=== PATIENT | female | born 1955 | race Two or more races ===

== ENCOUNTER 2022-11-26 18:02 | Inpatient (IN) | payer OTHER, MEDICAID ==
[~2022-11-26] VITALS: Ht 152.4 cm; Wt 84.9 kg
[~2022-11-26 18:02] MED LIST: AZIT250T8 PO; FERR-20 PO; METH4PAK PO; PANT40TA2 PO; SUCR1TAB PO
[2022-11-26 19:22] LABS: Basophils # (auto) 0 10 ^3/uL (0-0.2); Basophils % (auto) 0.1 % (0.0-2.0); Eosinophils # (auto) 0.1 10 ^3/uL (0-0.8); Eosinophils % (auto) 0.4 % (0.0-7.0); Hematocrit 29.3 % (36.0-46.0); Hemoglobin 9.6 g/dL (12.2-16.2); Lymphocytes # (auto) 0.5 10 ^3/uL (0.4-5.4); Lymphocytes % (auto) 2.4 % (10.0-50.0); Mean Corpuscular Hemoglobin 27.8 pg (28.0-32.0); Mean Corpuscular Hgb Conc. 32.6 g/dL (32.0-36.0); Mean Corpuscular Volume 85.1 fL (80.0-100.0); Monocytes # (auto) 1.4 10 ^3/uL (0-1.3); Monocytes % (auto) 6.2 % (0.0-12.0); Neutrophils # (auto) 20.5 10 ^3/uL (1.6-8.6); Neutrophils % (auto) 90.9 % (37.0-80.0); Red Blood Cells 3.44 10^6/uL (4.0-5.20); White Blood Cell 22.5 10^3/uL (4.4-10.8)
[2022-11-26 19:41] LABS: INR 2.16 (0.9-1.15); Partial Thromboplastin Time 51.1 sec (24.6-33.4)
[2022-11-26 19:50] LABS: Albumin 1.8 g/dL (3.4-5.0); BUN/Creatinine Ratio 10.4; Calcium 7.4 mg/dL (8.5-10.1); Potassium 4.1 mmol/L (3.5-5.1)
[2022-11-26 19:52] LABS: Bilirubin, Total 1.3 mg/dL (0.2-1.0); Total Protein 5.8 g/dL (6.4-8.2)
[2022-11-26] MEDS ORDERED: PIPERACILLIN-TAZOB 3.375GM 100 ML IV ONE (20:45)
[2022-11-26] MEDS ORDERED: methylPREDNISolone SOD SUCC 125 MG/2 ML VL IV ONE (20:45)
[2022-11-26 21:41] LABS: Lactic Acid w/Reflex 2.7 mmol/L (0.4-2.0)
[2022-11-26] MEDS ORDERED: PIPERACILLIN-TAZOB 3.375GM 100 ML IV SCH (22:00)
[2022-11-26] MEDS ORDERED: HYDROcodone-ACET 5/325MG TAB PO PRN (22:00)
[2022-11-26] MEDS ORDERED: ALBUMIN 25% 100 ML IV ONE (22:00)
[2022-11-26] MEDS ORDERED: ONDANSETRON HCL 4 MG/2 ML VIAL IV PRN (22:00)
[2022-11-26] MEDS ORDERED: DEXTROSE (50%) 50ML SYRG IV PRN (22:00)
[2022-11-26] MEDS ORDERED: hydrALAZINE HCL 20 MG/ML VL IV PRN (22:00)
[2022-11-26] MEDS ORDERED: SODIUM CHLORIDE 0.9% 1,000 ML IV SCH (22:00)
[2022-11-26] MEDS ORDERED: ACETAMINOPHEN 325 MG TAB PO PRN (22:00)
[2022-11-26] MEDS ORDERED: DOCUSATE SOD 100 MG CAP PO PRN (22:00)
[2022-11-26] MEDS: methylPREDNISolone SOD SUCC 40 MG/ML VL IV SCH (22:00)
[2022-11-26] MEDS: ACCU-CHEK COMFORT CURVE STRIP VI SCH (22:40)
[2022-11-26] MEDS: InsuLIN REG 1unit/0.01ml Soln (100units/ml) SC SCH (22:41)
[2022-11-26] MEDS ORDERED: MORPHINE SULFATE INJ 2 MG/ml SYRG IV PRN (23:15)
[2022-11-26] MEDS ORDERED: NITROGLYCERIN 0.4 MG SL TAB SL PRN (23:15)
[2022-11-27] MEDS: FAMOTIDINE (10MG/ML) 2ML VL IV SCH ×3 (02:37→22:01)
[2022-11-27] MEDS: ASCORBIC ACID 500 MG TAB PO SCH ×3 (02:38→22:01)
[2022-11-27] MEDS ORDERED: SODIUM CHLORIDE 0.9% 1,000 ML IV SCH (04:30)
[2022-11-27 04:33] VITALS: BP 110/43
[2022-11-27] MEDS: SODIUM CHLORIDE 0.9% 1,000 ML IV SCH ×2 (04:58→22:00)
[2022-11-27 06:00] LABS: Basophils # (auto) 0 10 ^3/uL (0-0.2); Basophils % (auto) 0.2 % (0.0-2.0); Eosinophils # (auto) 0 10 ^3/uL (0-0.8); Eosinophils % (auto) 0.2 % (0.0-7.0); Hemoglobin 9.1 g/dL (12.2-16.2); Lymphocytes # (auto) 0.4 10 ^3/uL (0.4-5.4); Mean Corpuscular Hemoglobin 28.2 pg (28.0-32.0); Mean Corpuscular Hgb Conc. 33.6 g/dL (32.0-36.0); Monocytes # (auto) 0.5 10 ^3/uL (0-1.3); Monocytes % (auto) 2.5 % (0.0-12.0); Neutrophils # (auto) 17.8 10 ^3/uL (1.6-8.6); Neutrophils % (auto) 95.1 % (37.0-80.0); Red Blood Cells 3.22 10^6/uL (4.0-5.20); White Blood Cell 18.7 10^3/uL (4.4-10.8)
[2022-11-27 06:08] LABS: Red Cell Distribution Width 23.6 % (11.8-14.3)
[2022-11-27 06:17] LABS: Potassium 4.1 mmol/L (3.5-5.1)
[2022-11-27 06:26] LABS: Albumin 1.6 g/dL (3.4-5.0); BUN/Creatinine Ratio 15.5; Calcium 7.4 mg/dL (8.5-10.1)
[2022-11-27] MEDS: methylPREDNISolone SOD SUCC 40 MG/ML VL IV SCH ×3 (06:26→22:01)
[2022-11-27] MEDS: PIPERACILLIN-TAZOB 3.375GM 100 ML IV SCH ×3 (06:26→22:01)
[2022-11-27 06:28] LABS: Bilirubin, Total 1.4 mg/dL (0.2-1.0)
[2022-11-27] MEDS: ACCU-CHEK COMFORT CURVE STRIP VI SCH ×6 (06:35→23:52)
[2022-11-27] MEDS: InsuLIN REG 1unit/0.01ml Soln (100units/ml) SC SCH ×5 (06:35→23:43)
[2022-11-27] MEDS: ALBUTEROL SULF 2.5 MG/0.5ML(0.5%) NEB SOLN NEB PRN ×2 (08:09→18:18)
[2022-11-27] MEDS: IPRATROPIUM BROM 0.5 MG/2.5ML INH SOL NEB PRN ×2 (08:09→18:18)
[2022-11-27] MEDS ORDERED: ENOXAPARIN SOD 40 MG/0.4 ML SYRINGE SC SCH (10:00)
[2022-11-27] MEDS: AZITHROMYCIN 500MG/ 250ML 250 ML IV SCH (10:39)
[2022-11-27] MEDS: ZINC SULFATE 220mg CAP or TAB PO SCH (10:40)
[2022-11-27] MEDS ORDERED: DEXTROSE (50%) 50ML SYRG IV PRN (17:30)
[2022-11-27 18:17] VITALS: BP 120/57
[2022-11-27 20:00] VITALS: BP_SYST 126; BP_SYST 91; BP_DIAS 25; BP_DIAS 76
[2022-11-27] MEDS ORDERED: FUROSEMIDE 20 MG/2 ML VIAL IV ONE (20:00)
[2022-11-27] MEDS: IPRATROPIUM BROM 0.5 MG/2.5ML INH SOL NEB SCH (21:54)
[2022-11-27] MEDS: ALBUTEROL SULF 2.5 MG/0.5ML(0.5%) NEB SOLN NEB SCH (21:54)
[2022-11-28 05:00] VITALS: BP 106/41
[2022-11-28] MEDS: PIPERACILLIN-TAZOB 3.375GM 100 ML IV SCH ×3 (05:28→22:19)
[2022-11-28] MEDS: ACCU-CHEK COMFORT CURVE STRIP VI SCH ×5 (05:29→23:06)
[2022-11-28] MEDS: methylPREDNISolone SOD SUCC 40 MG/ML VL IV SCH ×2 (05:29→14:57)
[2022-11-28] MEDS: InsuLIN REG 1unit/0.01ml Soln (100units/ml) SC SCH ×4 (05:43→23:07)
[2022-11-28] MEDS: IPRATROPIUM BROM 0.5 MG/2.5ML INH SOL NEB SCH ×5 (06:46→22:57)
[2022-11-28] MEDS: ALBUTEROL SULF 2.5 MG/0.5ML(0.5%) NEB SOLN NEB SCH ×5 (06:47→22:57)
[2022-11-28 08:00] VITALS: BP 117/45
[2022-11-28] MEDS: ZINC SULFATE 220mg CAP or TAB PO SCH (09:28)
[2022-11-28] MEDS: ASCORBIC ACID 500 MG TAB PO SCH ×2 (09:28→22:19)
[2022-11-28] MEDS: FAMOTIDINE (10MG/ML) 2ML VL IV SCH ×2 (09:29→22:18)
[2022-11-28] MEDS: AZITHROMYCIN 500MG/ 250ML 250 ML IV SCH (09:29)
[2022-11-28] MEDS ORDERED: IOHEXOL 350 MG/ML 100ML IJ ONE (12:20)
[2022-11-28 12:52] VITALS: BP 124/49
[2022-11-28] MEDS: SODIUM CHLORIDE 0.9% 1,000 ML IV SCH (14:20)
[2022-11-28 16:53] VITALS: BP 144/54
[2022-11-28 22:00] VITALS: BP 115/94
[2022-11-29] VITALS (7 sets, daily range): BP systolic 109–153; BP diastolic 58–72
[2022-11-29] MEDS ORDERED: ALPRAZolam 0.25 MG TAB PO PRN
[2022-11-29] MEDS: PIPERACILLIN-TAZOB 3.375GM 100 ML IV SCH ×3 (05:20→23:00)
[2022-11-29] MEDS: ACCU-CHEK COMFORT CURVE STRIP VI SCH ×8 (05:21→23:45)
[2022-11-29] MEDS: SODIUM CHLORIDE 0.9% 1,000 ML IV SCH ×2 (05:21→23:53)
[2022-11-29] MEDS: InsuLIN REG 1unit/0.01ml Soln (100units/ml) SC SCH ×4 (06:16→23:48)
[2022-11-29] MEDS: IPRATROPIUM BROM 0.5 MG/2.5ML INH SOL NEB SCH ×5 (06:29→22:06)
[2022-11-29] MEDS: ALBUTEROL SULF 2.5 MG/0.5ML(0.5%) NEB SOLN NEB SCH ×5 (06:29→22:06)
[2022-11-29] MEDS: AZITHROMYCIN 500MG/ 250ML 250 ML IV SCH (10:13)
[2022-11-29] MEDS: FAMOTIDINE (10MG/ML) 2ML VL IV SCH ×2 (10:13→23:00)
[2022-11-29] MEDS: ASCORBIC ACID 500 MG TAB PO SCH ×2 (10:13→23:00)
[2022-11-29] MEDS: ZINC SULFATE 220mg CAP or TAB PO SCH (10:13)
[2022-11-29] MEDS: Ensure HIGH Protein Chocolate 8oz Bottle PO SCH (18:00)
[2022-11-30 04:45] VITALS: BP 136/54
[2022-11-30] MEDS: PIPERACILLIN-TAZOB 3.375GM 100 ML IV SCH ×3 (06:08→21:27)
[2022-11-30] MEDS: ACCU-CHEK COMFORT CURVE STRIP VI SCH ×7 (06:08→22:00)
[2022-11-30] MEDS: InsuLIN REG 1unit/0.01ml Soln (100units/ml) SC SCH ×3 (06:13→18:00)
[2022-11-30] MEDS: ALBUTEROL SULF 2.5 MG/0.5ML(0.5%) NEB SOLN NEB SCH ×5 (06:23→21:59)
[2022-11-30] MEDS: IPRATROPIUM BROM 0.5 MG/2.5ML INH SOL NEB SCH ×5 (06:23→21:59)
[2022-11-30 06:45] LABS: Urine Bacteria FEW /hpf (None Seen); Urine Blood Negative /uL (Negative); Urine Budding Yeast FEW /hpf (None Seen); Urine Specific Gravity 1.025 (1.001-1.035); Urine WBC 22 /hpf (0 - 5)
[2022-11-30] MEDS: Ensure HIGH Protein Chocolate 8oz Bottle PO SCH ×2 (08:00→18:00)
[2022-11-30] MEDS: FAMOTIDINE (10MG/ML) 2ML VL IV SCH ×2 (09:22→22:17)
[2022-11-30] MEDS: ASCORBIC ACID 500 MG TAB PO SCH ×2 (09:22→21:27)
[2022-11-30] MEDS: ZINC SULFATE 220mg CAP or TAB PO SCH (09:22)
[2022-11-30] MEDS: AZITHROMYCIN 500MG/ 250ML 250 ML IV SCH (11:44)
[2022-11-30 12:54] LABS: Albumin 1.8 g/dL (3.4-5.0); BUN/Creatinine Ratio 28.2; Calcium 7.8 mg/dL (8.5-10.1); Potassium 3.9 mmol/L (3.5-5.1)
[2022-11-30 12:57] LABS: Bilirubin, Total 1.3 mg/dL (0.2-1.0); Total Protein 5.6 g/dL (6.4-8.2)
[2022-11-30 13:00] VITALS: BP 135/64
[2022-11-30 13:02] LABS: Basophils # (auto) 0 10 ^3/uL (0-0.2); Eosinophils # (auto) 0 10 ^3/uL (0-0.8); Eosinophils % (auto) 0.1 % (0.0-7.0); Lymphocytes # (auto) 0.3 10 ^3/uL (0.4-5.4); Lymphocytes % (auto) 2.1 % (10.0-50.0); Monocytes # (auto) 0.6 10 ^3/uL (0-1.3); Monocytes % (auto) 3.8 % (0.0-12.0)
[2022-11-30 13:04] LABS: Basophils % (auto) 0.1 % (0.0-2.0); Hematocrit 25.3 % (36.0-46.0); Hemoglobin 8.4 g/dL (12.2-16.2); Mean Corpuscular Hemoglobin 28.5 pg (28.0-32.0); Mean Corpuscular Hgb Conc. 33.1 g/dL (32.0-36.0); Mean Corpuscular Volume 86.3 fL (80.0-100.0); Neutrophils # (auto) 14.4 10 ^3/uL (1.6-8.6); Neutrophils % (auto) 93.9 % (37.0-80.0); Red Blood Cells 2.93 10^6/uL (4.0-5.20); White Blood Cell 15.4 10^3/uL (4.4-10.8)
[2022-11-30 13:11] LABS: Red Cell Distribution Width 23.9 % (11.8-14.3)
[2022-11-30] MEDS: ALPRAZolam 0.5 MG TAB PO SCH ×2 (13:32→21:26)
[2022-11-30 17:00] VITALS: BP 128/66
[2022-11-30] MEDS: ACETYLCYSTEINE 20%(200MG/ML) SOL 4ML NEB SCH (21:59)
[2022-11-30 22:00] VITALS: BP 129/63
[2022-12-01 05:00] VITALS: BP 106/52
[2022-12-01] MEDS: InsuLIN REG 1unit/0.01ml Soln (100units/ml) SC SCH ×5 (06:00→23:28)
[2022-12-01] MEDS: ALPRAZolam 0.5 MG TAB PO SCH ×2 (06:00→14:35)
[2022-12-01] MEDS: ACCU-CHEK COMFORT CURVE STRIP VI SCH ×9 (06:00→23:27)
[2022-12-01] MEDS: PIPERACILLIN-TAZOB 3.375GM 100 ML IV SCH ×4 (06:00→22:45)
[2022-12-01] MEDS ORDERED: MEPERIDINE HCL (25 MG/ML) 1ML VIAL ONE (07:20)
[2022-12-01] MEDS ORDERED: fentaNYL CITRATE 100 MCG/2 ML VL ONE ×2 (07:20→09:27)
[2022-12-01] MEDS ORDERED: MIDAZOLAM HCL 2MG/2ML 2ml VIAL (1mg/ml) ONE (07:20)
[2022-12-01] MEDS: IPRATROPIUM BROM 0.5 MG/2.5ML INH SOL NEB SCH ×5 (08:05→22:08)
[2022-12-01] MEDS: ALBUTEROL SULF 2.5 MG/0.5ML(0.5%) NEB SOLN NEB SCH ×5 (08:05→22:08)
[2022-12-01] MEDS: ACETYLCYSTEINE 20%(200MG/ML) SOL 4ML NEB SCH ×3 (08:06→22:08)
[2022-12-01 08:10] VITALS: BP 131/62
[2022-12-01] MEDS ORDERED: DexAMETHasone SOD PHOS 10MG/1ML VIAL INJ ONE (08:19)
[2022-12-01] MEDS ORDERED: ONDANSETRON HCL 4 MG/2 ML VIAL ONE (08:19)
[2022-12-01] MEDS ORDERED: PROPOFOL 10 MG/ML 20 ML IV ONE (08:19)
[2022-12-01] MEDS ORDERED: ROCURONIUM 10MG/ML 10ML VIAL IV ONE (08:19)
[2022-12-01 09:00] VITALS: BP 131/62
[2022-12-01] MEDS: methylPREDNISolone SOD SUCC 40 MG/ML VL IV SCH ×4 (09:04→23:27)
[2022-12-01] MEDS: Ensure HIGH Protein Chocolate 8oz Bottle PO SCH ×2 (09:06→18:45)
[2022-12-01] MEDS: AZITHROMYCIN 500MG/ 250ML 250 ML IV SCH (10:26)
[2022-12-01] MEDS: FUROSEMIDE 20 MG/2 ML VIAL IV SCH ×2 (10:27→18:29)
[2022-12-01] MEDS: FAMOTIDINE (10MG/ML) 2ML VL IV SCH ×2 (10:27→22:45)
[2022-12-01 10:32] LABS: Eosinophils # (auto) 0.3 10 ^3/uL (0-0.8); Mean Corpuscular Volume 85.8 fL (80.0-100.0); Monocytes # (auto) 0.3 10 ^3/uL (0-1.3); Monocytes % (auto) 2.7 % (0.0-12.0); Nucleated Red Blood Cells % 0.1 %; White Blood Cell 11.5 10^3/uL (4.4-10.8)
[2022-12-01] MEDS: ZINC SULFATE 220mg CAP or TAB PO SCH (10:40)
[2022-12-01] MEDS: POTASSIUM CHL 20 Meq TABLET PO SCH (10:41)
[2022-12-01] MEDS: ASCORBIC ACID 500 MG TAB PO SCH ×2 (10:41→22:00)
[2022-12-01 11:04] LABS: Calcium 7.6 mg/dL (8.5-10.1); Potassium 4.4 mmol/L (3.5-5.1)
[2022-12-01 11:07] LABS: BUN/Creatinine Ratio 26.8
[2022-12-01 11:15] LABS: Basophils # (auto) 0.1 10 ^3/uL (0-0.2); Basophils % (auto) 0.9 % (0.0-2.0); Hematocrit 25.3 % (36.0-46.0); Hemoglobin 8.2 g/dL (12.2-16.2); Lymphocytes # (auto) 0.3 10 ^3/uL (0.4-5.4); Lymphocytes % (auto) 2.9 % (10.0-50.0); Mean Corpuscular Hemoglobin 27.7 pg (28.0-32.0); Mean Corpuscular Hgb Conc. 32.3 g/dL (32.0-36.0); Neutrophils # (auto) 10.4 10 ^3/uL (1.6-8.6); Neutrophils % (auto) 90.5 % (37.0-80.0); Red Blood Cells 2.95 10^6/uL (4.0-5.20); Red Cell Distribution Width 22.9 % (11.8-14.3)
[2022-12-01] MEDS ORDERED: LORazepam 2MG/ML-1ML VIAL IV PRN (16:15)
[2022-12-01] MEDS ORDERED: FLUMAZENIL 0.1 MG/ML INJ 10ML MDV IV ONE ×2 (16:30)
[2022-12-01 20:00] VITALS: BP 120/52
[2022-12-01 23:44] LABS: Urine Bacteria FEW /hpf (None Seen); Urine Blood Negative /uL (Negative); Urine Budding Yeast MODERATE /hpf (None Seen); Urine Hyaline Cast FEW /lpf (0 - 2); Urine Specific Gravity 1.012 (1.001-1.035); Urine WBC 10 /hpf (0 - 5)
[2022-12-02] VITALS (30 sets, daily range): BP systolic 102–154; BP diastolic 42–62
[2022-12-02] MEDS: FUROSEMIDE 20 MG/2 ML VIAL IV SCH (05:38)
[2022-12-02] MEDS: ACCU-CHEK COMFORT CURVE STRIP VI SCH ×7 (05:39→21:49)
[2022-12-02] MEDS: methylPREDNISolone SOD SUCC 40 MG/ML VL IV SCH ×3 (05:39→18:06)
[2022-12-02] MEDS: PIPERACILLIN-TAZOB 3.375GM 100 ML IV SCH ×3 (05:39→21:37)
[2022-12-02] MEDS: InsuLIN REG 1unit/0.01ml Soln (100units/ml) SC SCH ×3 (06:04→18:22)
[2022-12-02] MEDS: IPRATROPIUM BROM 0.5 MG/2.5ML INH SOL NEB SCH ×5 (06:24→22:26)
[2022-12-02] MEDS: ACETYLCYSTEINE 20%(200MG/ML) SOL 4ML NEB SCH ×3 (06:25→22:27)
[2022-12-02] MEDS: ALBUTEROL SULF 2.5 MG/0.5ML(0.5%) NEB SOLN NEB SCH ×5 (06:25→22:26)
[2022-12-02] MEDS: Ensure HIGH Protein Chocolate 8oz Bottle PO SCH ×2 (08:25→18:00)
[2022-12-02] MEDS: AZITHROMYCIN 500MG/ 250ML 250 ML IV SCH (09:46)
[2022-12-02] MEDS: FAMOTIDINE (10MG/ML) 2ML VL IV SCH ×2 (09:47→21:37)
[2022-12-02] MEDS: POTASSIUM CHL 20 Meq TABLET PO SCH (09:47)
[2022-12-02] MEDS: ZINC SULFATE 220mg CAP or TAB PO SCH (09:47)
[2022-12-02] MEDS: ASCORBIC ACID 500 MG TAB PO SCH ×2 (09:47→22:00)
[2022-12-02] MEDS ORDERED: FUROSEMIDE 20 MG/2 ML VIAL IV ONE (10:00)
[2022-12-02 15:33] LABS: INR 1.63 (0.9-1.15); Partial Thromboplastin Time 45.3 sec (24.6-33.4)
[2022-12-02] MEDS: FUROSEMIDE 40 MG/4 ML VIAL IV SCH (18:06)
[2022-12-03] VITALS (61 sets, daily range): BP systolic 103–151; BP diastolic 42–75
[2022-12-03] MEDS: methylPREDNISolone SOD SUCC 40 MG/ML VL IV SCH ×4 (00:04→21:08)
[2022-12-03] MEDS: InsuLIN REG 1unit/0.01ml Soln (100units/ml) SC SCH ×5 (00:05→23:12)
[2022-12-03] MEDS: ACCU-CHEK COMFORT CURVE STRIP VI SCH ×7 (00:11→23:04)
[2022-12-03] MEDS: PIPERACILLIN-TAZOB 3.375GM 100 ML IV SCH ×3 (05:37→21:08)
[2022-12-03] MEDS: FUROSEMIDE 40 MG/4 ML VIAL IV SCH ×2 (05:37→17:34)
[2022-12-03] MEDS: IPRATROPIUM BROM 0.5 MG/2.5ML INH SOL NEB SCH ×5 (06:46→22:25)
[2022-12-03] MEDS: ACETYLCYSTEINE 20%(200MG/ML) SOL 4ML NEB SCH ×3 (06:46→22:25)
[2022-12-03] MEDS: ALBUTEROL SULF 2.5 MG/0.5ML(0.5%) NEB SOLN NEB SCH ×5 (06:46→22:25)
[2022-12-03] MEDS: Ensure HIGH Protein Chocolate 8oz Bottle PO SCH ×2 (08:00→18:00)
[2022-12-03] MEDS: FLUCONAZOLE 200MG/100ML 100 ML IV SCH ×2 (09:50→12:03)
[2022-12-03] MEDS: FAMOTIDINE (10MG/ML) 2ML VL IV SCH ×2 (09:50→21:08)
[2022-12-03] MEDS: AZITHROMYCIN 500MG/ 250ML 250 ML IV SCH (09:51)
[2022-12-03] MEDS: POTASSIUM CHL 20 Meq TABLET PO SCH (10:00)
[2022-12-03] MEDS: ZINC SULFATE 220mg CAP or TAB PO SCH (10:00)
[2022-12-03] MEDS: ASCORBIC ACID 500 MG TAB PO SCH ×2 (10:00→21:17)
[2022-12-03] MEDS ORDERED: CLINIMIX PER PHARMACY 0 ML IV SCH (10:30)
[2022-12-03 12:29] LABS: Albumin 1.5 g/dL (3.4-5.0); Calcium 8.2 mg/dL (8.5-10.1); Magnesium 1.9 mg/dL (1.6-2.6)
[2022-12-03 12:31] LABS: BUN/Creatinine Ratio 42.9
[2022-12-03 12:39] LABS: Bilirubin, Total 0.6 mg/dL (0.2-1.0); Total Protein 5.9 g/dL (6.4-8.2)
[2022-12-03 12:46] LABS: Potassium 2.8 mmol/L (3.5-5.1)
[2022-12-03] MEDS: POTASSIUM CHL 20MEQ/100ML 100 ML IV SCH ×3 (13:30→18:28)
[2022-12-03] MEDS: AMINO ACID INFUSION IN D10W 1,000 ML IV NR (20:14)
[2022-12-04] VITALS (34 sets, daily range): BP systolic 129–165; BP diastolic 44–67
[2022-12-04] MEDS: ACCU-CHEK COMFORT CURVE STRIP VI SCH ×3 (05:01→18:00)
[2022-12-04] MEDS: PIPERACILLIN-TAZOB 3.375GM 100 ML IV SCH ×3 (05:01→21:56)
[2022-12-04] MEDS: InsuLIN REG 1unit/0.01ml Soln (100units/ml) SC SCH ×3 (05:06→18:00)
[2022-12-04] MEDS: FUROSEMIDE 40 MG/4 ML VIAL IV SCH ×2 (06:00→19:15)
[2022-12-04 06:23] LABS: Albumin 1.6 g/dL (3.4-5.0); Calcium 7.9 mg/dL (8.5-10.1); Potassium 3.2 mmol/L (3.5-5.1)
[2022-12-04 06:26] LABS: Magnesium 1.8 mg/dL (1.6-2.6)
[2022-12-04 06:29] LABS: Bilirubin, Total 0.7 mg/dL (0.2-1.0); Phosphorus 3.1 mg/dL (2.5-4.90); Total Protein 5.5 g/dL (6.4-8.2)
[2022-12-04 06:30] LABS: Basophils # (auto) 0 10 ^3/uL (0-0.2); Eosinophils # (auto) 0 10 ^3/uL (0-0.8); Hematocrit 27.2 % (36.0-46.0); Hemoglobin 8.7 g/dL (12.2-16.2); Lymphocytes # (auto) 0.2 10 ^3/uL (0.4-5.4); Lymphocytes % (auto) 2.8 % (10.0-50.0); Mean Corpuscular Hemoglobin 27.8 pg (28.0-32.0); Mean Corpuscular Hgb Conc. 31.9 g/dL (32.0-36.0); Monocytes # (auto) 0.4 10 ^3/uL (0-1.3); Monocytes % (auto) 5.8 % (0.0-12.0); Neutrophils % (auto) 91.4 % (37.0-80.0); Nucleated Red Blood Cells % 0.1 %; Red Blood Cells 3.13 10^6/uL (4.0-5.20); Red Cell Distribution Width 23.2 % (11.8-14.3); White Blood Cell 6.5 10^3/uL (4.4-10.8)
[2022-12-04] MEDS: IPRATROPIUM BROM 0.5 MG/2.5ML INH SOL NEB SCH ×5 (06:38→22:02)
[2022-12-04] MEDS: ALBUTEROL SULF 2.5 MG/0.5ML(0.5%) NEB SOLN NEB SCH ×5 (06:38→22:02)
[2022-12-04] MEDS: ACETYLCYSTEINE 20%(200MG/ML) SOL 4ML NEB SCH ×3 (06:38→22:02)
[2022-12-04] MEDS: Ensure HIGH Protein Chocolate 8oz Bottle PO SCH ×2 (08:19→18:00)
[2022-12-04] MEDS: FLUCONAZOLE 200MG/100ML 100 ML IV SCH ×2 (08:20→12:59)
[2022-12-04] MEDS: ZINC SULFATE 220mg CAP or TAB PO SCH (10:00)
[2022-12-04] MEDS: ASCORBIC ACID 500 MG TAB PO SCH ×2 (10:00→22:00)
[2022-12-04] MEDS: POTASSIUM CHL 20 Meq TABLET PO SCH (10:00)
[2022-12-04] MEDS: FAMOTIDINE (10MG/ML) 2ML VL IV SCH ×2 (10:13→21:56)
[2022-12-04] MEDS: methylPREDNISolone SOD SUCC 40 MG/ML VL IV SCH ×2 (10:13→21:56)
[2022-12-04] MEDS: POTASSIUM CHL 20MEQ/100ML 100 ML IV SCH ×2 (10:14→11:15)
[2022-12-04] MEDS: AZITHROMYCIN 500MG/ 250ML 250 ML IV SCH (10:14)
[2022-12-04] MEDS: AMINO ACID INFUSION IN D10W 1,000 ML IV NR (20:08)
[2022-12-05] VITALS (25 sets, daily range): BP systolic 121–163; BP diastolic 39–75
[2022-12-05] MEDS: ACCU-CHEK COMFORT CURVE STRIP VI SCH ×4 (00:22→18:21)
[2022-12-05] MEDS: InsuLIN REG 1unit/0.01ml Soln (100units/ml) SC SCH ×4 (00:25→18:32)
[2022-12-05 05:32] LABS: Albumin 1.6 g/dL (3.4-5.0); Calcium 7.6 mg/dL (8.5-10.1); Magnesium 1.6 mg/dL (1.6-2.6)
[2022-12-05 05:36] LABS: BUN/Creatinine Ratio 50.6; Bilirubin, Total 0.7 mg/dL (0.2-1.0); Total Protein 5.5 g/dL (6.4-8.2)
[2022-12-05 05:49] LABS: Potassium 2.8 mmol/L (3.5-5.1)
[2022-12-05] MEDS: FUROSEMIDE 40 MG/4 ML VIAL IV SCH (05:55)
[2022-12-05] MEDS: IPRATROPIUM BROM 0.5 MG/2.5ML INH SOL NEB SCH ×4 (06:24→18:02)
[2022-12-05] MEDS: ACETYLCYSTEINE 20%(200MG/ML) SOL 4ML NEB SCH ×2 (06:24→14:15)
[2022-12-05] MEDS: ALBUTEROL SULF 2.5 MG/0.5ML(0.5%) NEB SOLN NEB SCH ×4 (06:24→18:02)
[2022-12-05] MEDS: PIPERACILLIN-TAZOB 3.375GM 100 ML IV SCH ×3 (06:29→20:51)
[2022-12-05] MEDS: POTASSIUM CHL 20MEQ/100ML 100 ML IV SCH ×3 (06:30→12:56)
[2022-12-05] MEDS: Ensure HIGH Protein Chocolate 8oz Bottle PO SCH ×2 (08:00→20:18)
[2022-12-05] MEDS: FAMOTIDINE (10MG/ML) 2ML VL IV SCH ×2 (09:55→20:51)
[2022-12-05] MEDS: AZITHROMYCIN 500MG/ 250ML 250 ML IV SCH (09:56)
[2022-12-05] MEDS: methylPREDNISolone SOD SUCC 40 MG/ML VL IV SCH ×2 (09:56→20:51)
[2022-12-05] MEDS: FLUCONAZOLE 200MG/100ML 100 ML IV SCH ×2 (09:57→12:56)
[2022-12-05] MEDS: ZINC SULFATE 220mg CAP or TAB PO SCH (10:00)
[2022-12-05] MEDS: POTASSIUM CHL 20 Meq TABLET PO SCH (10:00)
[2022-12-05] MEDS: ASCORBIC ACID 500 MG TAB PO SCH ×2 (10:00→21:03)
[2022-12-05] MEDS ORDERED: POTASSIUM PHOSPHATE 44 MEQ in D5W 5% 250 ML IV ONE (14:00)
[2022-12-05] MEDS: MAGNESIUM SULFATE 1GM/100ML 100 ML IV SCH ×2 (14:00→15:00)
[2022-12-05] MEDS ORDERED: acetaZOLAMIDE SODIUM 500 MG VL IV ONE (15:00)
[2022-12-05] MEDS: SPIRONOLACTONE 25 MG TAB PO SCH ×2 (20:17→20:18)
[2022-12-05] MEDS: AMINO ACID INFUSION IN D10W 1,000 ML IV NR (20:43)
[2022-12-05 21:41] LABS: Protein, Urine 41.9 mg/dL (0.0-11.9); Sodium Urine < 5 mmol/L (40-220)
[2022-12-05 21:43] LABS: Creatinine, Urine 43 mg/dL (30.0-125.0)
[2022-12-06] VITALS (29 sets, daily range): BP systolic 119–160; BP diastolic 33–58
[2022-12-06] MEDS: ACCU-CHEK COMFORT CURVE STRIP VI SCH ×4 (00:14→18:00)
[2022-12-06] MEDS: InsuLIN REG 1unit/0.01ml Soln (100units/ml) SC SCH ×4 (00:14→18:00)
[2022-12-06] MEDS: IPRATROPIUM BROM 0.5 MG/2.5ML INH SOL NEB SCH ×5 (01:18→22:11)
[2022-12-06] MEDS: ACETYLCYSTEINE 20%(200MG/ML) SOL 4ML NEB SCH ×4 (01:18→22:12)
[2022-12-06] MEDS: ALBUTEROL SULF 2.5 MG/0.5ML(0.5%) NEB SOLN NEB SCH ×5 (01:18→22:11)
[2022-12-06] MEDS: SPIRONOLACTONE 25 MG TAB PO SCH ×2 (05:48→18:56)
[2022-12-06] MEDS: PIPERACILLIN-TAZOB 3.375GM 100 ML IV SCH ×3 (05:48→23:21)
[2022-12-06 07:20] LABS: Albumin 1.5 g/dL (3.4-5.0); Magnesium 2.3 mg/dL (1.6-2.6); Potassium 3.6 mmol/L (3.5-5.1)
[2022-12-06 07:24] LABS: BUN/Creatinine Ratio 43.9; Bilirubin, Total 0.7 mg/dL (0.2-1.0); Phosphorus 2.3 mg/dL (2.5-4.90); Total Protein 5.7 g/dL (6.4-8.2)
[2022-12-06] MEDS: Ensure HIGH Protein Chocolate 8oz Bottle PO SCH ×2 (08:00→18:00)
[2022-12-06] MEDS: methylPREDNISolone SOD SUCC 40 MG/ML VL IV SCH ×2 (09:55→23:20)
[2022-12-06] MEDS: FUROSEMIDE 40 MG/4 ML VIAL IV SCH (09:56)
[2022-12-06] MEDS: ASCORBIC ACID 500 MG TAB PO SCH ×3 (09:57→22:00)
[2022-12-06] MEDS: POTASSIUM CHL 20 Meq TABLET PO SCH ×2 (09:57→10:00)
[2022-12-06] MEDS: FAMOTIDINE (10MG/ML) 2ML VL IV SCH ×2 (09:57→23:20)
[2022-12-06] MEDS: ZINC SULFATE 220mg CAP or TAB PO SCH ×2 (09:57→10:00)
[2022-12-06] MEDS: AZITHROMYCIN 500MG/ 250ML 250 ML IV SCH (09:58)
[2022-12-06] MEDS: FLUCONAZOLE 200MG/100ML 100 ML IV SCH ×2 (09:58→11:00)
[2022-12-06] MEDS: AMINO ACID INFUSION IN D10W 1,000 ML IV NR ×2 (19:49→20:44)
[2022-12-07] VITALS (34 sets, daily range): BP systolic 116–138; BP diastolic 37–55
[2022-12-07] MEDS: InsuLIN REG 1unit/0.01ml Soln (100units/ml) SC SCH ×4 (01:12→18:11)
[2022-12-07 05:24] LABS: Albumin 1.3 g/dL (3.4-5.0); BUN/Creatinine Ratio 40.6; Calcium 7.7 mg/dL (8.5-10.1); Magnesium 1.9 mg/dL (1.6-2.6); Potassium 3.2 mmol/L (3.5-5.1)
[2022-12-07 05:27] LABS: Bilirubin, Total 0.6 mg/dL (0.2-1.0); Phosphorus 1.8 mg/dL (2.5-4.90)
[2022-12-07] MEDS: IPRATROPIUM BROM 0.5 MG/2.5ML INH SOL NEB SCH ×5 (05:53→22:33)
[2022-12-07] MEDS: ACETYLCYSTEINE 20%(200MG/ML) SOL 4ML NEB SCH ×3 (05:53→22:34)
[2022-12-07] MEDS: ALBUTEROL SULF 2.5 MG/0.5ML(0.5%) NEB SOLN NEB SCH ×5 (05:53→22:34)
[2022-12-07] MEDS: SPIRONOLACTONE 25 MG TAB PO SCH ×2 (06:00→18:00)
[2022-12-07] MEDS: PIPERACILLIN-TAZOB 3.375GM 100 ML IV SCH ×3 (06:03→22:28)
[2022-12-07] MEDS: ACCU-CHEK COMFORT CURVE STRIP VI SCH ×4 (06:03→18:13)
[2022-12-07] MEDS: Ensure HIGH Protein Chocolate 8oz Bottle PO SCH ×2 (08:00→18:00)
[2022-12-07] MEDS ORDERED: MAGNESIUM SULFATE 1GM/100ML 100 ML IV ONE (09:15)
[2022-12-07] MEDS: AZITHROMYCIN 500MG/ 250ML 250 ML IV SCH (09:42)
[2022-12-07] MEDS: FAMOTIDINE (10MG/ML) 2ML VL IV SCH ×2 (09:43→10:03)
[2022-12-07] MEDS ORDERED: POTASSIUM PHOSPHATE 44 MEQ in SODIUM CHL 0.9% 250 ML IV ONE (10:00)
[2022-12-07] MEDS: ASCORBIC ACID 500 MG TAB PO SCH ×3 (10:00→22:00)
[2022-12-07] MEDS: FLUCONAZOLE 200MG/100ML 100 ML IV SCH ×2 (10:00→12:10)
[2022-12-07] MEDS: ZINC SULFATE 220mg CAP or TAB PO SCH ×2 (10:00→10:03)
[2022-12-07] MEDS: POTASSIUM CHL 20 Meq TABLET PO SCH ×2 (10:00→10:04)
[2022-12-07] MEDS: FUROSEMIDE 40 MG/4 ML VIAL IV SCH (10:02)
[2022-12-07] MEDS: methylPREDNISolone SOD SUCC 40 MG/ML VL IV SCH ×2 (10:22→22:28)
[2022-12-07] MEDS: IPRATROPIUM BROM 0.5 MG/2.5ML INH SOL NEB PRN (19:01)
[2022-12-07] MEDS: AMINO ACID INFUSION IN D10W 1,000 ML IV NR (20:41)
[2022-12-08] VITALS (35 sets, daily range): BP systolic 110–152; BP diastolic 39–82
[2022-12-08] MEDS: ACCU-CHEK COMFORT CURVE STRIP VI SCH ×4 (00:24→17:08)
[2022-12-08] MEDS: InsuLIN REG 1unit/0.01ml Soln (100units/ml) SC SCH ×4 (00:25→17:06)
[2022-12-08] MEDS: ALBUTEROL SULF 2.5 MG/0.5ML(0.5%) NEB SOLN NEB PRN (02:27)
[2022-12-08] MEDS: IPRATROPIUM BROM 0.5 MG/2.5ML INH SOL NEB PRN (02:27)
[2022-12-08] MEDS: SPIRONOLACTONE 25 MG TAB PO SCH ×2 (05:41→18:00)
[2022-12-08 05:44] LABS: Basophils # (auto) 0 10 ^3/uL (0-0.2); Eosinophils # (auto) 0 10 ^3/uL (0-0.8); Lymphocytes # (auto) 0.2 10 ^3/uL (0.4-5.4); Monocytes # (auto) 0.4 10 ^3/uL (0-1.3)
[2022-12-08] MEDS: PIPERACILLIN-TAZOB 3.375GM 100 ML IV SCH ×3 (05:47→22:12)
[2022-12-08 05:48] LABS: Basophils % (auto) 0.2 % (0.0-2.0); Hematocrit 26.6 % (36.0-46.0); Hemoglobin 8.7 g/dL (12.2-16.2); Mean Corpuscular Hemoglobin 27.5 pg (28.0-32.0); Mean Corpuscular Hgb Conc. 32.7 g/dL (32.0-36.0); Mean Corpuscular Volume 84.2 fL (80.0-100.0); Monocytes % (auto) 2.3 % (0.0-12.0); Neutrophils # (auto) 15.1 10 ^3/uL (1.6-8.6); Neutrophils % (auto) 96.5 % (37.0-80.0); Nucleated Red Blood Cells % 0.1 %; Red Blood Cells 3.16 10^6/uL (4.0-5.20); White Blood Cell 15.7 10^3/uL (4.4-10.8)
[2022-12-08 06:02] LABS: Potassium 3.3 mmol/L (3.5-5.1)
[2022-12-08] MEDS: IPRATROPIUM BROM 0.5 MG/2.5ML INH SOL NEB SCH ×5 (06:08→22:13)
[2022-12-08] MEDS: ALBUTEROL SULF 2.5 MG/0.5ML(0.5%) NEB SOLN NEB SCH ×5 (06:08→22:13)
[2022-12-08] MEDS: ACETYLCYSTEINE 20%(200MG/ML) SOL 4ML NEB SCH (06:09)
[2022-12-08 06:12] LABS: Albumin 1.3 g/dL (3.4-5.0); Bilirubin, Total 0.6 mg/dL (0.2-1.0); Calcium 7.8 mg/dL (8.5-10.1); Magnesium 2.1 mg/dL (1.6-2.6); Total Protein 4.7 g/dL (6.4-8.2)
[2022-12-08 06:27] LABS: Phosphorus 3.1 mg/dL (2.5-4.90)
[2022-12-08 06:57] LABS: Red Cell Distribution Width 23.1 % (11.8-14.3)
[2022-12-08] MEDS: Ensure HIGH Protein Chocolate 8oz Bottle PO SCH ×2 (08:00→18:00)
[2022-12-08] MEDS: POTASSIUM CHL 20 Meq TABLET PO SCH (10:00)
[2022-12-08] MEDS: ZINC SULFATE 220mg CAP or TAB PO SCH (10:00)
[2022-12-08] MEDS: ASCORBIC ACID 500 MG TAB PO SCH ×2 (10:00→22:00)
[2022-12-08] MEDS: FUROSEMIDE 40 MG/4 ML VIAL IV SCH (10:40)
[2022-12-08] MEDS: methylPREDNISolone SOD SUCC 40 MG/ML VL IV SCH ×2 (10:40→22:12)
[2022-12-08] MEDS: FAMOTIDINE (10MG/ML) 2ML VL IV SCH ×2 (10:41→22:12)
[2022-12-08] MEDS: FLUCONAZOLE 200MG/100ML 100 ML IV SCH ×2 (11:00→12:06)
[2022-12-08] MEDS: AZITHROMYCIN 500MG/ 250ML 250 ML IV SCH (13:09)
[2022-12-08] MEDS ORDERED: POTASSIUM CHL 20MEQ/100ML 100 ML IV ONE (15:30)
[2022-12-08] MEDS: AMINO ACID INFUSION IN D10W 1,000 ML IV NR ×2 (19:38→20:19)
[2022-12-08] MEDS: FUROSEMIDE INJECTION 100 MG in SODIUM CHL 0.9% 100 ML IV SCH (22:50)
[2022-12-09] VITALS (37 sets, daily range): BP systolic 117–147; BP diastolic 26–55
[2022-12-09] MEDS: InsuLIN REG 1unit/0.01ml Soln (100units/ml) SC SCH ×4 (00:16→18:00)
[2022-12-09] MEDS: ACCU-CHEK COMFORT CURVE STRIP VI SCH ×4 (00:18→17:57)
[2022-12-09] MEDS: ALBUTEROL SULF 2.5 MG/0.5ML(0.5%) NEB SOLN NEB SCH ×6 (01:32→22:17)
[2022-12-09] MEDS: IPRATROPIUM BROM 0.5 MG/2.5ML INH SOL NEB SCH ×6 (01:32→22:17)
[2022-12-09] MEDS: SPIRONOLACTONE 25 MG TAB PO SCH ×2 (05:32→17:57)
[2022-12-09] MEDS: PIPERACILLIN-TAZOB 3.375GM 100 ML IV SCH (05:32)
[2022-12-09 05:54] LABS: Albumin 1.3 g/dL (3.4-5.0); BUN/Creatinine Ratio 50.8; Calcium 7.5 mg/dL (8.5-10.1); Magnesium 1.8 mg/dL (1.6-2.6)
[2022-12-09 05:56] LABS: Bilirubin, Total 0.7 mg/dL (0.2-1.0); Phosphorus 1.8 mg/dL (2.5-4.90); Total Protein 4.8 g/dL (6.4-8.2)
[2022-12-09 06:34] LABS: Potassium 2.4 mmol/L (3.5-5.1)
[2022-12-09] MEDS: Ensure HIGH Protein Chocolate 8oz Bottle PO SCH ×2 (07:42→17:57)
[2022-12-09] MEDS: ZINC SULFATE 220mg CAP or TAB PO SCH (07:43)
[2022-12-09] MEDS: POTASSIUM CHL 20 Meq TABLET PO SCH (07:44)
[2022-12-09] MEDS: ASCORBIC ACID 500 MG TAB PO SCH ×2 (07:44→20:47)
[2022-12-09] MEDS: FAMOTIDINE (10MG/ML) 2ML VL IV SCH ×2 (09:56→23:20)
[2022-12-09] MEDS: FLUCONAZOLE 200MG/100ML 100 ML IV SCH ×2 (09:56→12:05)
[2022-12-09] MEDS: AZITHROMYCIN 500MG/ 250ML 250 ML IV SCH (09:57)
[2022-12-09] MEDS: methylPREDNISolone SOD SUCC 40 MG/ML VL IV SCH ×2 (09:57→23:20)
[2022-12-09] MEDS: POTASSIUM CHL 20MEQ/100ML 100 ML IV SCH ×4 (09:58→20:26)
[2022-12-09] MEDS ORDERED: VANCOMYCIN PER PHARMACY 0 MG IV SCH (11:00)
[2022-12-09] MEDS: VANCOMYCIN 1GM/250ML 250 ML IV SCH (12:05)
[2022-12-09] MEDS: CEFEPIME 1GM/ 50ML 50 ML IV SCH ×2 (14:00→23:20)
[2022-12-09] MEDS: FUROSEMIDE INJECTION 100 MG in SODIUM CHL 0.9% 100 ML IV SCH (17:58)
[2022-12-09] MEDS: POTASSIUM PHOSP 22MEQ(15MMOLE) in NS 100 ML IV ONE (20:09)
[2022-12-09] MEDS: AMINO ACID INFUSION IN D10W 1,000 ML IV NR (20:25)
[2022-12-10] VITALS (33 sets, daily range): BP systolic 118–165; BP diastolic 45–60
[2022-12-10] MEDS: POTASSIUM PHOSP 22MEQ(15MMOLE) in NS 100 ML IV ONE (00:55)
[2022-12-10] MEDS: InsuLIN REG 1unit/0.01ml Soln (100units/ml) SC SCH ×4 (01:04→18:24)
[2022-12-10] MEDS: ACCU-CHEK COMFORT CURVE STRIP VI SCH ×4 (01:04→18:22)
[2022-12-10] MEDS: VANCOMYCIN 1GM/250ML 250 ML IV SCH ×2 (02:41→18:23)
[2022-12-10] MEDS: SPIRONOLACTONE 25 MG TAB PO SCH ×2 (05:01→18:00)
[2022-12-10] MEDS: CEFEPIME 1GM/ 50ML 50 ML IV SCH ×3 (05:10→21:49)
[2022-12-10 06:14] LABS: Basophils # (auto) 0 10 ^3/uL (0-0.2); Basophils % (auto) 0.1 % (0.0-2.0); Eosinophils # (auto) 0 10 ^3/uL (0-0.8); Hematocrit 27.4 % (36.0-46.0); Hemoglobin 8.7 g/dL (12.2-16.2); Lymphocytes # (auto) 0.2 10 ^3/uL (0.4-5.4); Lymphocytes % (auto) 1.1 % (10.0-50.0); Mean Corpuscular Hgb Conc. 31.8 g/dL (32.0-36.0); Mean Corpuscular Volume 84.8 fL (80.0-100.0); Monocytes # (auto) 0.8 10 ^3/uL (0-1.3); Monocytes % (auto) 4.6 % (0.0-12.0); Neutrophils # (auto) 16.6 10 ^3/uL (1.6-8.6); Neutrophils % (auto) 94.2 % (37.0-80.0); Red Blood Cells 3.23 10^6/uL (4.0-5.20); White Blood Cell 17.6 10^3/uL (4.4-10.8)
[2022-12-10 06:28] LABS: Red Cell Distribution Width 23.2 % (11.8-14.3)
[2022-12-10 06:32] LABS: INR 1.62 (0.9-1.15); Partial Thromboplastin Time 42.1 sec (24.6-33.4)
[2022-12-10] MEDS: ALBUTEROL SULF 2.5 MG/0.5ML(0.5%) NEB SOLN NEB SCH ×5 (07:01→22:21)
[2022-12-10] MEDS: IPRATROPIUM BROM 0.5 MG/2.5ML INH SOL NEB SCH ×5 (07:01→22:20)
[2022-12-10 07:02] LABS: Albumin 1.2 g/dL (3.4-5.0); BUN/Creatinine Ratio 51.6; Calcium 7.4 mg/dL (8.5-10.1); Magnesium 1.7 mg/dL (1.6-2.6); Phosphorus 2.9 mg/dL (2.5-4.90)
[2022-12-10 07:06] LABS: Potassium 2.4 mmol/L (3.5-5.1)
[2022-12-10] MEDS: Ensure HIGH Protein Chocolate 8oz Bottle PO SCH ×2 (08:00→18:00)
[2022-12-10] MEDS: ZINC SULFATE 220mg CAP or TAB PO SCH (09:04)
[2022-12-10] MEDS: POTASSIUM CHL 20 Meq TABLET PO SCH (09:04)
[2022-12-10] MEDS: ASCORBIC ACID 500 MG TAB PO SCH ×2 (09:05→21:25)
[2022-12-10] MEDS: FAMOTIDINE (10MG/ML) 2ML VL IV SCH ×2 (10:08→21:49)
[2022-12-10] MEDS: methylPREDNISolone SOD SUCC 40 MG/ML VL IV SCH ×2 (10:08→21:49)
[2022-12-10] MEDS: FLUCONAZOLE 200MG/100ML 100 ML IV SCH ×2 (10:09→11:17)
[2022-12-10] MEDS: POTASSIUM CHL 20MEQ/100ML 100 ML IV SCH ×5 (10:10→22:45)
[2022-12-10] MEDS ORDERED: MAGNESIUM SULFATE 1GM/100ML 100 ML IV ONE (11:45)
[2022-12-10] MEDS: FUROSEMIDE INJECTION 100 MG in SODIUM CHL 0.9% 100 ML IV SCH (11:47)
[2022-12-10] MEDS: AMINO ACID INFUSION IN D10W 1,000 ML IV NR (19:34)
[2022-12-11] VITALS (31 sets, daily range): BP systolic 108–172; BP diastolic 20–62
[2022-12-11] MEDS: InsuLIN REG 1unit/0.01ml Soln (100units/ml) SC SCH ×5 (00:40→23:47)
[2022-12-11] MEDS: SPIRONOLACTONE 25 MG TAB PO SCH ×2 (05:38→18:00)
[2022-12-11] MEDS: CEFEPIME 1GM/ 50ML 50 ML IV SCH ×3 (05:47→21:53)
[2022-12-11 05:50] LABS: Eosinophils # (auto) 0 10 ^3/uL (0-0.8)
[2022-12-11] MEDS: ACCU-CHEK COMFORT CURVE STRIP VI SCH ×5 (05:51→23:44)
[2022-12-11 05:54] LABS: Basophils # (auto) 0 10 ^3/uL (0-0.2); Basophils % (auto) 0.3 % (0.0-2.0); Eosinophils % (auto) 0.1 % (0.0-7.0); Hematocrit 25.9 % (36.0-46.0); Hemoglobin 8.3 g/dL (12.2-16.2); Lymphocytes # (auto) 0.2 10 ^3/uL (0.4-5.4); Lymphocytes % (auto) 1.1 % (10.0-50.0); Mean Corpuscular Hemoglobin 27.7 pg (28.0-32.0); Mean Corpuscular Hgb Conc. 32.2 g/dL (32.0-36.0); Mean Corpuscular Volume 85.9 fL (80.0-100.0); Monocytes # (auto) 0.6 10 ^3/uL (0-1.3); Monocytes % (auto) 3.7 % (0.0-12.0); Neutrophils # (auto) 14.2 10 ^3/uL (1.6-8.6); Neutrophils % (auto) 94.8 % (37.0-80.0); Red Blood Cells 3.02 10^6/uL (4.0-5.20)
[2022-12-11 06:11] LABS: Red Cell Distribution Width 23.5 % (11.8-14.3)
[2022-12-11 06:25] LABS: BUN/Creatinine Ratio 58.1; Calcium 7.6 mg/dL (8.5-10.1)
[2022-12-11 06:28] LABS: Potassium 2.8 mmol/L (3.5-5.1)
[2022-12-11] MEDS: Ensure HIGH Protein Chocolate 8oz Bottle PO SCH ×2 (08:00→18:00)
[2022-12-11] MEDS: FUROSEMIDE INJECTION 100 MG in SODIUM CHL 0.9% 100 ML IV SCH (08:26)
[2022-12-11] MEDS: ALBUTEROL SULF 2.5 MG/0.5ML(0.5%) NEB SOLN NEB SCH ×5 (09:04→22:19)
[2022-12-11] MEDS: IPRATROPIUM BROM 0.5 MG/2.5ML INH SOL NEB SCH ×5 (09:04→22:20)
[2022-12-11] MEDS: VANCOMYCIN 1GM/250ML 250 ML IV SCH ×2 (09:08→20:27)
[2022-12-11] MEDS: ZINC SULFATE 220mg CAP or TAB PO SCH (09:38)
[2022-12-11] MEDS: ASCORBIC ACID 500 MG TAB PO SCH ×2 (09:38→21:54)
[2022-12-11] MEDS: POTASSIUM CHL 20 Meq TABLET PO SCH ×2 (09:38→10:15)
[2022-12-11] MEDS: FAMOTIDINE (10MG/ML) 2ML VL IV SCH ×2 (09:44→21:48)
[2022-12-11] MEDS: methylPREDNISolone SOD SUCC 40 MG/ML VL IV SCH (09:44)
[2022-12-11] MEDS: POTASSIUM CHL 20MEQ/100ML 100 ML IV SCH ×3 (09:45→14:08)
[2022-12-11] MEDS: FLUCONAZOLE 200MG/100ML 100 ML IV SCH ×2 (10:49→12:00)
[2022-12-11] MEDS: methylPREDNISolone SOD SUCC 125 MG/2 ML VL IV SCH ×3 (12:00→23:44)
[2022-12-11 12:03] LABS: Phosphorus 2.6 mg/dL (2.5-4.90)
[2022-12-11] MEDS ORDERED: POTASSIUM PHOSPHATE 22 MEQ in SODIUM CHL 0.9% 100 ML IV ONE (18:00)
[2022-12-11] MEDS ORDERED: LIDOCAINE 1% (LOCAL ANESTH.) PF 5ml SDV ID ONE (18:15)
[2022-12-11] MEDS: AMINO ACID INFUSION IN D10W 1,000 ML IV NR ×2 (19:27→20:17)
[2022-12-11] MEDS: SODIUM CHLOR 0.9% PF (SALINE LOCK) 10ML VIAL/SYR IV SCH (21:52)
[2022-12-11] MEDS: acetaZOLAMIDE SODIUM 500 MG VL IV SCH (21:53)
[2022-12-12] VITALS (36 sets, daily range): BP systolic 104–180; BP diastolic 45–70
[2022-12-12] MEDS: SPIRONOLACTONE 25 MG TAB PO SCH ×2 (06:00→18:00)
[2022-12-12 06:07] LABS: Potassium 2.1 mmol/L (3.5-5.1)
[2022-12-12] MEDS: IPRATROPIUM BROM 0.5 MG/2.5ML INH SOL NEB SCH ×5 (06:09→23:21)
[2022-12-12] MEDS: ALBUTEROL SULF 2.5 MG/0.5ML(0.5%) NEB SOLN NEB SCH ×5 (06:09→23:20)
[2022-12-12 06:11] LABS: Albumin 1.4 g/dL (3.4-5.0); BUN/Creatinine Ratio 52.9; Calcium 7.5 mg/dL (8.5-10.1); Magnesium 1.7 mg/dL (1.6-2.6); Phosphorus 2.8 mg/dL (2.5-4.90)
[2022-12-12] MEDS: ACCU-CHEK COMFORT CURVE STRIP VI SCH ×4 (06:11→23:58)
[2022-12-12] MEDS: methylPREDNISolone SOD SUCC 125 MG/2 ML VL IV SCH ×3 (06:11→18:25)
[2022-12-12] MEDS: FUROSEMIDE INJECTION 100 MG in SODIUM CHL 0.9% 100 ML IV SCH (06:16)
[2022-12-12] MEDS: CEFEPIME 1GM/ 50ML 50 ML IV SCH ×3 (06:16→23:25)
[2022-12-12] MEDS: InsuLIN REG 1unit/0.01ml Soln (100units/ml) SC SCH ×3 (06:23→18:21)
[2022-12-12] MEDS: Ensure HIGH Protein Chocolate 8oz Bottle PO SCH ×2 (08:00→18:00)
[2022-12-12] MEDS: VANCOMYCIN 1GM/250ML 250 ML IV SCH ×2 (08:56→22:17)
[2022-12-12] MEDS: ASCORBIC ACID 500 MG TAB PO SCH ×2 (10:00→22:00)
[2022-12-12] MEDS: ZINC SULFATE 220mg CAP or TAB PO SCH (10:00)
[2022-12-12] MEDS: POTASSIUM CHL 20 Meq TABLET PO SCH (10:00)
[2022-12-12] MEDS: SODIUM CHLOR 0.9% PF (SALINE LOCK) 10ML VIAL/SYR IV SCH ×2 (10:03→22:22)
[2022-12-12] MEDS: FAMOTIDINE (10MG/ML) 2ML VL IV SCH ×2 (10:03→22:22)
[2022-12-12] MEDS: FLUCONAZOLE 200MG/100ML 100 ML IV SCH ×2 (10:04→11:09)
[2022-12-12] MEDS: acetaZOLAMIDE SODIUM 500 MG VL IV SCH ×2 (10:05→22:20)
[2022-12-12] MEDS ORDERED: POTASSIUM CHL 20MEQ/100ML 100 ML IV ONE (11:15)
[2022-12-12] MEDS: DOPamine 1600MCG/ML D5W 250 ML IV SCH (12:45)
[2022-12-12] MEDS: POTASSIUM CHL 20MEQ/100ML 100 ML IV SCH ×4 (13:56→22:25)
[2022-12-12] MEDS ORDERED: MAGNESIUM SULFATE 1GM/100ML 100 ML IV ONE (17:00)
[2022-12-12] MEDS: AMINO ACID INFUSION IN D10W 1,000 ML IV NR (20:37)
[2022-12-13] VITALS (33 sets, daily range): BP systolic 104–184; BP diastolic 27–56
[2022-12-13] MEDS: InsuLIN REG 1unit/0.01ml Soln (100units/ml) SC SCH ×4 (00:02→17:36)
[2022-12-13] MEDS: POTASSIUM CHL 20MEQ/100ML 100 ML IV SCH (00:37)
[2022-12-13] MEDS: FUROSEMIDE INJECTION 100 MG in SODIUM CHL 0.9% 100 ML IV SCH ×2 (01:45→21:34)
[2022-12-13] MEDS: SPIRONOLACTONE 25 MG TAB PO SCH ×2 (05:17→17:59)
[2022-12-13] MEDS: ACCU-CHEK COMFORT CURVE STRIP VI SCH ×3 (05:17→17:32)
[2022-12-13] MEDS: methylPREDNISolone SOD SUCC 125 MG/2 ML VL IV SCH ×4 (05:21→17:36)
[2022-12-13 05:28] LABS: Hemoglobin 9.8 g/dL (12.2-16.2)
[2022-12-13 05:30] LABS: Hematocrit 31.2 % (36.0-46.0); Mean Corpuscular Hemoglobin 26.6 pg (28.0-32.0); Mean Corpuscular Hgb Conc. 31.4 g/dL (32.0-36.0); Mean Corpuscular Volume 84.9 fL (80.0-100.0); Red Blood Cells 3.67 10^6/uL (4.0-5.20); White Blood Cell 18.9 10^3/uL (4.4-10.8)
[2022-12-13 05:40] LABS: Red Cell Distribution Width 23.1 % (11.8-14.3)
[2022-12-13 05:41] LABS: Basophils % (manual) 0 (0.0-2.0); Blast Cells 0; Eosinophils % (manual) 0 (0-7); Lymphocytes % (manual) 0 (10.0-50.0); Metamyelocytes % 0; Myelocytes % 0; Promyelocytes % 0; Reactive Lymphocytes 0
[2022-12-13 05:57] LABS: Potassium 3.5 mmol/L (3.5-5.1)
[2022-12-13 06:11] LABS: BUN/Creatinine Ratio 60.7; Magnesium 2.1 mg/dL (1.6-2.6); Phosphorus 1.8 mg/dL (2.5-4.90)
[2022-12-13] MEDS: CEFEPIME 1GM/ 50ML 50 ML IV SCH ×3 (06:21→22:06)
[2022-12-13] MEDS: ALBUTEROL SULF 2.5 MG/0.5ML(0.5%) NEB SOLN NEB SCH ×5 (06:50→23:48)
[2022-12-13] MEDS: IPRATROPIUM BROM 0.5 MG/2.5ML INH SOL NEB SCH ×5 (06:50→23:48)
[2022-12-13] MEDS ORDERED: POTASSIUM CHL 20MEQ/100ML 100 ML IV ONE ×2 (07:45→13:30)
[2022-12-13] MEDS: Ensure HIGH Protein Chocolate 8oz Bottle PO SCH ×2 (08:00→17:32)
[2022-12-13] MEDS: VANCOMYCIN 1GM/250ML 250 ML IV SCH (09:03)
[2022-12-13] MEDS: FLUCONAZOLE 200MG/100ML 100 ML IV SCH ×2 (09:33→11:00)
[2022-12-13] MEDS: acetaZOLAMIDE SODIUM 500 MG VL IV SCH ×2 (09:33→22:01)
[2022-12-13] MEDS: FAMOTIDINE (10MG/ML) 2ML VL IV SCH ×2 (09:33→22:04)
[2022-12-13] MEDS: SODIUM CHLOR 0.9% PF (SALINE LOCK) 10ML VIAL/SYR IV SCH ×2 (09:33→22:06)
[2022-12-13] MEDS: ASCORBIC ACID 500 MG TAB PO SCH (09:34)
[2022-12-13] MEDS: ZINC SULFATE 220mg CAP or TAB PO SCH (09:34)
[2022-12-13 10:08] LABS: Band Neutrophils % (manual) 23; Monocytes % (manual) 1 (0-12)
[2022-12-13] MEDS: DOPamine 1600MCG/ML D5W 250 ML IV SCH (12:45)
[2022-12-13] MEDS: AMINO ACID INFUSION IN D10W 1,000 ML IV NR ×2 (19:38→20:50)
[2022-12-13] MEDS ORDERED: TPN PER PHARMACY 0 ML IV SCH (22:00)
[2022-12-14] VITALS (35 sets, daily range): BP systolic 125–167; BP diastolic 44–57
[2022-12-14] MEDS: methylPREDNISolone SOD SUCC 125 MG/2 ML VL IV SCH ×3 (00:03→12:29)
[2022-12-14] MEDS: ACCU-CHEK COMFORT CURVE STRIP VI SCH ×5 (00:04→23:47)
[2022-12-14] MEDS: InsuLIN REG 1unit/0.01ml Soln (100units/ml) SC SCH ×5 (00:05→23:48)
[2022-12-14 05:36] LABS: Hematocrit 28.3 % (36.0-46.0); Mean Corpuscular Hemoglobin 27.3 pg (28.0-32.0); Mean Corpuscular Hgb Conc. 31.9 g/dL (32.0-36.0); Mean Corpuscular Volume 85.7 fL (80.0-100.0); Red Blood Cells 3.31 10^6/uL (4.0-5.20); White Blood Cell 17.3 10^3/uL (4.4-10.8)
[2022-12-14 05:44] LABS: Red Cell Distribution Width 23.3 % (11.8-14.3)
[2022-12-14 05:45] LABS: Basophils % (manual) 0 (0.0-2.0); Blast Cells 0; Eosinophils % (manual) 0 (0-7); Lymphocytes % (manual) 0 (10.0-50.0); Metamyelocytes % 0; Monocytes % (manual) 0 (0-12); Myelocytes % 0; Promyelocytes % 0; Reactive Lymphocytes 0
[2022-12-14 05:55] LABS: Albumin 1.4 g/dL (3.4-5.0); Calcium 8.5 mg/dL (8.5-10.1); Potassium 3.4 mmol/L (3.5-5.1)
[2022-12-14 05:59] LABS: BUN/Creatinine Ratio 58.6 (10.0-20.0); Bilirubin, Total 1.2 mg/dL (0.2-1.0); Phosphorus 1.9 mg/dL (2.5-4.90); Total Protein 5.1 g/dL (6.4-8.2)
[2022-12-14] MEDS: SPIRONOLACTONE 25 MG TAB PO SCH ×2 (06:00→17:28)
[2022-12-14] MEDS: CEFEPIME 1GM/ 50ML 50 ML IV SCH ×3 (06:02→22:00)
[2022-12-14] MEDS: ALBUTEROL SULF 2.5 MG/0.5ML(0.5%) NEB SOLN NEB SCH ×5 (06:12→21:38)
[2022-12-14] MEDS: IPRATROPIUM BROM 0.5 MG/2.5ML INH SOL NEB SCH ×5 (06:12→21:38)
[2022-12-14] MEDS: Ensure HIGH Protein Chocolate 8oz Bottle PO SCH ×2 (08:00→17:47)
[2022-12-14] MEDS ORDERED: POTASSIUM PHOSP 22MEQ(15MMOLE) in NS 100 ML IV ONE (08:30)
[2022-12-14 08:32] LABS: Band Neutrophils % (manual) 15
[2022-12-14] MEDS: methylPREDNISolone SOD SUCC 40 MG/ML VL IV SCH ×3 (09:43→23:47)
[2022-12-14] MEDS: FAMOTIDINE (10MG/ML) 2ML VL IV SCH (10:00)
[2022-12-14] MEDS: FUROSEMIDE INJECTION 100 MG in SODIUM CHL 0.9% 100 ML IV SCH (10:21)
[2022-12-14] MEDS: FLUCONAZOLE 200MG/100ML 100 ML IV SCH ×2 (10:24→11:19)
[2022-12-14] MEDS: SODIUM CHLOR 0.9% PF (SALINE LOCK) 10ML VIAL/SYR IV SCH ×2 (10:24→22:01)
[2022-12-14] MEDS: acetaZOLAMIDE SODIUM 500 MG VL IV SCH (10:29)
[2022-12-14] MEDS: INSULIN LANTUS (GLARGINE) 1 /0.01ml (100units/ml) SC SCH (11:16)
[2022-12-14] MEDS ORDERED: POTASSIUM CHL 20MEQ/100ML 100 ML IV SCH (13:00)
[2022-12-14] MEDS: POTASSIUM CHL 20MEQ/100ML 100 ML IV SCH ×2 (15:50→16:06)
[2022-12-14] MEDS: FUROSEMIDE 40 MG/4 ML VIAL IV SCH (17:47)
[2022-12-14] MEDS: AMINO ACID INFUSION IN D10W 1,000 ML IV NR (19:49)
[2022-12-14] MEDS ORDERED: TPN PER PHARMACY IV NR ×8 (20:00)
[2022-12-15] VITALS (31 sets, daily range): BP systolic 124–167; BP diastolic 39–69
[2022-12-15] MEDS: SPIRONOLACTONE 25 MG TAB PO SCH ×2 (05:36→18:00)
[2022-12-15] MEDS: CEFEPIME 1GM/ 50ML 50 ML IV SCH ×3 (05:37→21:58)
[2022-12-15] MEDS: methylPREDNISolone SOD SUCC 40 MG/ML VL IV SCH ×4 (05:37→23:13)
[2022-12-15] MEDS: FUROSEMIDE 40 MG/4 ML VIAL IV SCH ×2 (05:39→18:12)
[2022-12-15] MEDS: ACCU-CHEK COMFORT CURVE STRIP VI SCH ×4 (05:39→23:13)
[2022-12-15 05:49] LABS: Eosinophils # (auto) 0 10 ^3/uL (0-0.8); Monocytes # (auto) 0.4 10 ^3/uL (0-1.3); Neutrophils # (auto) 19.8 10 ^3/uL (1.6-8.6); White Blood Cell 20.6 10^3/uL (4.4-10.8)
[2022-12-15] MEDS: InsuLIN REG 1unit/0.01ml Soln (100units/ml) SC SCH ×4 (05:49→23:14)
[2022-12-15] MEDS: INSULIN LANTUS (GLARGINE) 1 /0.01ml (100units/ml) SC SCH (05:50)
[2022-12-15 05:51] LABS: Basophils # (auto) 0.2 10 ^3/uL (0-0.2); Basophils % (auto) 0.8 % (0.0-2.0); Hematocrit 27.8 % (36.0-46.0); Lymphocytes # (auto) 0.2 10 ^3/uL (0.4-5.4); Mean Corpuscular Hemoglobin 27.3 pg (28.0-32.0); Mean Corpuscular Hgb Conc. 32.2 g/dL (32.0-36.0); Neutrophils % (auto) 96.2 % (37.0-80.0); Nucleated Red Blood Cells % 0.1 %; Red Blood Cells 3.27 10^6/uL (4.0-5.20)
[2022-12-15 05:58] LABS: Red Cell Distribution Width 23.3 % (11.8-14.3)
[2022-12-15 06:15] LABS: Albumin 1.3 g/dL (3.4-5.0); BUN/Creatinine Ratio 73.3 (10.0-20.0); Bilirubin, Total 1.3 mg/dL (0.2-1.0); Calcium 8.3 mg/dL (8.5-10.1); Magnesium 2.1 mg/dL (1.6-2.6); Phosphorus 2.6 mg/dL (2.5-4.90)
[2022-12-15] MEDS: IPRATROPIUM BROM 0.5 MG/2.5ML INH SOL NEB SCH ×5 (06:59→21:50)
[2022-12-15] MEDS: ALBUTEROL SULF 2.5 MG/0.5ML(0.5%) NEB SOLN NEB SCH ×5 (06:59→21:50)
[2022-12-15 07:07] LABS: Potassium 3.4 mmol/L (3.5-5.1)
[2022-12-15] MEDS: Ensure HIGH Protein Chocolate 8oz Bottle PO SCH ×2 (08:00→18:00)
[2022-12-15] MEDS ORDERED: POTASSIUM PHOSP 22MEQ(15MMOLE) in NS 100 ML IV ONE (08:15)
[2022-12-15] MEDS ORDERED: VANCOMYCIN 1GM/250ML 250 ML IV SCH (09:15)
[2022-12-15] MEDS: hydrALAZINE HCL 20 MG/ML VL IV PRN ×2 (09:26→20:19)
[2022-12-15] MEDS: SODIUM CHLOR 0.9% PF (SALINE LOCK) 10ML VIAL/SYR IV SCH ×2 (10:00→21:58)
[2022-12-15] MEDS: POTASSIUM CHL 20MEQ/100ML 100 ML IV SCH ×2 (13:45→15:58)
[2022-12-15] MEDS ORDERED: TPN PER PHARMACY IV NR ×9 (20:00)
[2022-12-16] VITALS (36 sets, daily range): BP systolic 133–175; BP diastolic 52–88
[2022-12-16 05:23] LABS: Mean Corpuscular Hgb Conc. 31.8 g/dL (32.0-36.0)
[2022-12-16 05:26] LABS: Hematocrit 29.3 % (36.0-46.0); Hemoglobin 9.3 g/dL (12.2-16.2); Mean Corpuscular Hemoglobin 27.4 pg (28.0-32.0); Mean Corpuscular Volume 86.2 fL (80.0-100.0); White Blood Cell 20.8 10^3/uL (4.4-10.8)
[2022-12-16] MEDS: methylPREDNISolone SOD SUCC 40 MG/ML VL IV SCH ×3 (05:29→17:55)
[2022-12-16] MEDS: CEFEPIME 1GM/ 50ML 50 ML IV SCH ×2 (05:29→14:13)
[2022-12-16] MEDS: SPIRONOLACTONE 25 MG TAB PO SCH ×2 (05:30→09:26)
[2022-12-16] MEDS: FUROSEMIDE 40 MG/4 ML VIAL IV SCH ×2 (05:30→17:21)
[2022-12-16 05:33] LABS: Red Cell Distribution Width 23.6 % (11.8-14.3)
[2022-12-16 05:35] LABS: Basophils % (manual) 0 (0.0-2.0); Blast Cells 0; Eosinophils % (manual) 0 (0-7); Metamyelocytes % 0; Myelocytes % 0; Promyelocytes % 0; Reactive Lymphocytes 0
[2022-12-16 05:41] LABS: Albumin 1.3 g/dL (3.4-5.0); Magnesium 2.3 mg/dL (1.6-2.6); Potassium 3.9 mmol/L (3.5-5.1)
[2022-12-16 05:44] LABS: BUN/Creatinine Ratio 76.6 (10.0-20.0); Bilirubin, Total 1.7 mg/dL (0.2-1.0); Phosphorus 3.6 mg/dL (2.5-4.90)
[2022-12-16] MEDS: InsuLIN REG 1unit/0.01ml Soln (100units/ml) SC SCH ×3 (06:06→17:22)
[2022-12-16] MEDS: ACCU-CHEK COMFORT CURVE STRIP VI SCH ×3 (06:08→17:22)
[2022-12-16] MEDS: INSULIN LANTUS (GLARGINE) 1 /0.01ml (100units/ml) SC SCH (06:09)
[2022-12-16] MEDS: ALBUTEROL SULF 2.5 MG/0.5ML(0.5%) NEB SOLN NEB SCH ×5 (06:30→22:14)
[2022-12-16] MEDS: IPRATROPIUM BROM 0.5 MG/2.5ML INH SOL NEB SCH ×5 (06:30→22:14)
[2022-12-16] MEDS: Ensure HIGH Protein Chocolate 8oz Bottle PO SCH ×2 (07:24→07:26)
[2022-12-16] MEDS: SODIUM CHLOR 0.9% PF (SALINE LOCK) 10ML VIAL/SYR IV SCH ×2 (07:24→22:00)
[2022-12-16 09:22] LABS: Band Neutrophils % (manual) 10; Lymphocytes % (manual) 3 (10.0-50.0); Monocytes % (manual) 2 (0-12)
[2022-12-16] MEDS: D5W 5% 1,000 ML IV SCH (11:45)
[2022-12-16] MEDS: hydrALAZINE HCL 20 MG/ML VL IV PRN (18:55)
[2022-12-16] MEDS ORDERED: TPN PER PHARMACY IV NR ×7 (20:00)
[2022-12-16] MEDS: MORPHINE SULFATE INJ 2 MG/ml SYRG IV PRN (20:30)
[2022-12-17] VITALS (72 sets, daily range): BP systolic 108–166; BP diastolic 5–99
[2022-12-17] MEDS: methylPREDNISolone SOD SUCC 40 MG/ML VL IV SCH ×4 (00:43→16:40)
[2022-12-17] MEDS: ACCU-CHEK COMFORT CURVE STRIP VI SCH ×4 (00:44→16:40)
[2022-12-17] MEDS: CEFEPIME 1GM/ 50ML 50 ML IV SCH ×4 (00:44→21:34)
[2022-12-17] MEDS: InsuLIN REG 1unit/0.01ml Soln (100units/ml) SC SCH ×4 (00:50→16:41)
[2022-12-17] MEDS: MORPHINE SULFATE INJ 2 MG/ml SYRG IV PRN (03:58)
[2022-12-17 04:36] LABS: Mean Corpuscular Volume 85.9 fL (80.0-100.0)
[2022-12-17 04:38] LABS: Hematocrit 29.5 % (36.0-46.0); Hemoglobin 9.4 g/dL (12.2-16.2); Mean Corpuscular Hemoglobin 27.3 pg (28.0-32.0); Mean Corpuscular Hgb Conc. 31.8 g/dL (32.0-36.0); Red Blood Cells 3.43 10^6/uL (4.0-5.20); White Blood Cell 20.7 10^3/uL (4.4-10.8)
[2022-12-17 04:59] LABS: Albumin 1.4 g/dL (3.4-5.0); BUN/Creatinine Ratio 82.5 (10.0-20.0); Calcium 8.2 mg/dL (8.5-10.1); Magnesium 2.2 mg/dL (1.6-2.6); Potassium 3.2 mmol/L (3.5-5.1)
[2022-12-17 05:00] LABS: Bilirubin, Total 2.2 mg/dL (0.2-1.0); Phosphorus 3.1 mg/dL (2.5-4.90); Total Protein 5.1 g/dL (6.4-8.2)
[2022-12-17 05:06] LABS: Basophils % (manual) 0 (0.0-2.0); Eosinophils % (manual) 0 (0-7); Metamyelocytes % 0; Myelocytes % 0
[2022-12-17 05:07] LABS: Blast Cells 0; Promyelocytes % 0; Reactive Lymphocytes 0
[2022-12-17] MEDS: SPIRONOLACTONE 25 MG TAB PO SCH ×2 (06:00→15:40)
[2022-12-17] MEDS: IPRATROPIUM BROM 0.5 MG/2.5ML INH SOL NEB SCH ×5 (06:05→22:02)
[2022-12-17] MEDS: FUROSEMIDE 40 MG/4 ML VIAL IV SCH ×2 (06:34→16:40)
[2022-12-17] MEDS: INSULIN LANTUS (GLARGINE) 1 /0.01ml (100units/ml) SC SCH (06:38)
[2022-12-17] MEDS: SODIUM CHLOR 0.9% PF (SALINE LOCK) 10ML VIAL/SYR IV SCH ×2 (07:14→21:34)
[2022-12-17] MEDS: Ensure HIGH Protein Chocolate 8oz Bottle PO SCH ×2 (07:14→15:40)
[2022-12-17 07:22] LABS: Lymphocytes % (manual) 1 (10.0-50.0)
[2022-12-17 07:23] LABS: Band Neutrophils % (manual) 19; Monocytes % (manual) 3 (0-12)
[2022-12-17] MEDS: D5W 5% 1,000 ML IV SCH (09:32)
[2022-12-17] MEDS: POTASSIUM CHL 20MEQ/100ML 100 ML IV SCH ×2 (09:32→10:45)
[2022-12-17] MEDS: ALBUTEROL SULF 2.5 MG/0.5ML(0.5%) NEB SOLN NEB SCH ×5 (10:39→22:02)
[2022-12-17] MEDS ORDERED: fentaNYL Drip 2500mCg/250mlNS 250 ML IV ONE (11:22)
[2022-12-17] MEDS ORDERED: ETOMIDATE (2MG/ML) 20ML VIAL IV ONE ×2 (11:22→11:30)
[2022-12-17] MEDS ORDERED: NOREPINEPHRINE 8 MG/250ML KIT 250 ML IV ONE (11:22)
[2022-12-17] MEDS ORDERED: PROPOFOL 100 ML IV ONE (11:22)
[2022-12-17] MEDS ORDERED: ROCURONIUM 10MG/ML 10ML VIAL IV ONE ×2 (11:22→11:30)
[2022-12-17] MEDS ORDERED: SUCCINYLCHOLINE CHLORIDE 20 MG/ML 10ML VIAL IV ONE (11:23)
[2022-12-17] MEDS: PROPOFOL 100 ML IV SCH ×2 (11:30→21:38)
[2022-12-17] MEDS: NOREPINEPHRINE 8 MG/250ML KIT 250 ML IV SCH (11:30)
[2022-12-17] MEDS: fentaNYL Drip 2500mCg/250mlNS 250 ML IV SCH (11:30)
[2022-12-17] MEDS: ATRACURIUM BESYLATE 1,000 MG in D5W 5% 150 ML IV SCH (12:30)
[2022-12-17] MEDS ORDERED: POTASSIUM CHL 20MEQ/100ML 100 ML IV ONE (14:00)
[2022-12-17] MEDS ORDERED: TPN PER PHARMACY IV NR ×7 (20:00)
[2022-12-18] VITALS (105 sets, daily range): BP systolic 81–187; BP diastolic 40–75
[2022-12-18] MEDS: ACCU-CHEK COMFORT CURVE STRIP VI SCH ×4 (00:03→16:49)
[2022-12-18] MEDS: InsuLIN REG 1unit/0.01ml Soln (100units/ml) SC SCH ×4 (00:06→16:49)
[2022-12-18] MEDS: methylPREDNISolone SOD SUCC 40 MG/ML VL IV SCH ×4 (00:10→16:49)
[2022-12-18] MEDS: D5W 5% 1,000 ML IV SCH (04:15)
[2022-12-18] MEDS: CEFEPIME 1GM/ 50ML 50 ML IV SCH ×3 (05:35→22:16)
[2022-12-18] MEDS: SPIRONOLACTONE 25 MG TAB PO SCH (05:36)
[2022-12-18] MEDS: FUROSEMIDE 40 MG/4 ML VIAL IV SCH (05:36)
[2022-12-18] MEDS: IPRATROPIUM BROM 0.5 MG/2.5ML INH SOL NEB SCH ×4 (06:04→22:25)
[2022-12-18] MEDS: ALBUTEROL SULF 2.5 MG/0.5ML(0.5%) NEB SOLN NEB SCH ×4 (06:05→22:25)
[2022-12-18 06:12] LABS: Potassium 5.1 mmol/L (3.5-5.1)
[2022-12-18 06:19] LABS: Albumin 1.2 g/dL (3.4-5.0); BUN/Creatinine Ratio 76.4 (10.0-20.0); Calcium 8.1 mg/dL (8.5-10.1); Magnesium 2.1 mg/dL (1.6-2.6)
[2022-12-18 06:21] LABS: Bilirubin, Total 1.3 mg/dL (0.2-1.0); Phosphorus 5.4 mg/dL (2.5-4.90); Total Protein 4.8 g/dL (6.4-8.2)
[2022-12-18] MEDS: INSULIN LANTUS (GLARGINE) 1 /0.01ml (100units/ml) SC SCH (06:57)
[2022-12-18] MEDS: SODIUM CHLOR 0.9% PF (SALINE LOCK) 10ML VIAL/SYR IV SCH ×2 (07:21→22:16)
[2022-12-18] MEDS: Ensure HIGH Protein Chocolate 8oz Bottle PO SCH ×2 (07:21→15:29)
[2022-12-18] MEDS: NOREPINEPHRINE 8 MG/250ML KIT 250 ML IV SCH (07:29)
[2022-12-18 08:07] LABS: Hematocrit 28.9 % (36.0-46.0); Hemoglobin 8.8 g/dL (12.2-16.2); Mean Corpuscular Hemoglobin 27.1 pg (28.0-32.0); Mean Corpuscular Hgb Conc. 30.3 g/dL (32.0-36.0); Mean Corpuscular Volume 89.4 fL (80.0-100.0); Red Blood Cells 3.23 10^6/uL (4.0-5.20); White Blood Cell 15.1 10^3/uL (4.4-10.8)
[2022-12-18 08:08] LABS: Red Cell Distribution Width 24.5 % (11.8-14.3)
[2022-12-18 08:12] LABS: Basophils % (manual) 0 (0.0-2.0); Blast Cells 0; Eosinophils % (manual) 0 (0-7); Metamyelocytes % 0; Myelocytes % 0; Promyelocytes % 0; Reactive Lymphocytes 0
[2022-12-18 08:36] LABS: Band Neutrophils % (manual) 7; Lymphocytes % (manual) 1 (10.0-50.0); Monocytes % (manual) 2 (0-12)
[2022-12-18] MEDS: PROPOFOL 100 ML IV SCH ×2 (08:56→20:28)
[2022-12-18] MEDS ORDERED: AMINO ACID INFUSION IN D10W 1,000 ML IV NR (10:00)
[2022-12-18] MEDS: FUROSEMIDE INJECTION 100 MG in SODIUM CHL 0.9% 100 ML IV SCH ×2 (10:45→20:58)
[2022-12-18] MEDS: fentaNYL Drip 2500mCg/250mlNS 250 ML IV SCH (11:30)
[2022-12-18] MEDS: ATRACURIUM BESYLATE 1,000 MG in D5W 5% 150 ML IV SCH (12:04)
[2022-12-18] MEDS ORDERED: MIDAZOLAM DRIP 50 mg/50mL 50 ML IV ONE (18:35)
[2022-12-18] MEDS: MIDAZOLAM DRIP 50 mg/50mL 50 ML IV SCH (19:12)
[2022-12-18] MEDS: PHENYLEPHRINE IV 250 ML IV SCH (19:15)
[2022-12-18] MEDS: TPN PER PHARMACY IV NR ×6 (20:00)
[2022-12-18] MEDS: ACETYLCYSTEINE 20%(200MG/ML) SOL 4ML NEB SCH (22:26)
[2022-12-19] VITALS (108 sets, daily range): BP systolic 92–207; BP diastolic 35–73
[2022-12-19] MEDS: ACCU-CHEK COMFORT CURVE STRIP VI SCH ×4 (00:05→17:48)
[2022-12-19] MEDS: InsuLIN REG 1unit/0.01ml Soln (100units/ml) SC SCH ×4 (00:07→17:53)
[2022-12-19] MEDS: D5W 5% 1,000 ML IV SCH (00:07)
[2022-12-19] MEDS: methylPREDNISolone SOD SUCC 40 MG/ML VL IV SCH ×4 (00:08→17:48)
[2022-12-19] MEDS: PHENYLEPHRINE IV 250 ML IV SCH ×3 (03:35→20:15)
[2022-12-19 05:14] LABS: Mean Corpuscular Hemoglobin 28.6 pg (28.0-32.0); Mean Corpuscular Hgb Conc. 31.9 g/dL (32.0-36.0); Mean Corpuscular Volume 89.6 fL (80.0-100.0); Red Blood Cells 2.79 10^6/uL (4.0-5.20); White Blood Cell 15.9 10^3/uL (4.4-10.8)
[2022-12-19 05:22] LABS: Calcium 7.4 mg/dL (8.5-10.1); Magnesium 1.9 mg/dL (1.6-2.6); Potassium 5.2 mmol/L (3.5-5.1)
[2022-12-19 05:25] LABS: BUN/Creatinine Ratio 69.3 (10.0-20.0); Bilirubin, Total 1.6 mg/dL (0.2-1.0); Total Protein 4.2 g/dL (6.4-8.2)
[2022-12-19] MEDS: IPRATROPIUM BROM 0.5 MG/2.5ML INH SOL NEB SCH ×5 (05:58→22:22)
[2022-12-19] MEDS: ALBUTEROL SULF 2.5 MG/0.5ML(0.5%) NEB SOLN NEB SCH ×5 (05:58→22:22)
[2022-12-19] MEDS: ACETYLCYSTEINE 20%(200MG/ML) SOL 4ML NEB SCH ×3 (05:59→18:19)
[2022-12-19] MEDS: FUROSEMIDE INJECTION 100 MG in SODIUM CHL 0.9% 100 ML IV SCH ×2 (06:31→16:27)
[2022-12-19] MEDS: PROPOFOL 100 ML IV SCH ×5 (06:33→23:09)
[2022-12-19] MEDS: INSULIN LANTUS (GLARGINE) 1 /0.01ml (100units/ml) SC SCH (07:03)
[2022-12-19 07:29] LABS: Red Cell Distribution Width 23.8 % (11.8-14.3)
[2022-12-19 07:33] LABS: Basophils % (manual) 0 (0.0-2.0); Blast Cells 0; Eosinophils % (manual) 0 (0-7); Metamyelocytes % 0; Myelocytes % 0; Promyelocytes % 0; Reactive Lymphocytes 0
[2022-12-19] MEDS: CEFEPIME 1GM/ 50ML 50 ML IV SCH (07:38)
[2022-12-19] MEDS: fentaNYL Drip 2500mCg/250mlNS 250 ML IV SCH ×2 (07:50→18:47)
[2022-12-19] MEDS: ATRACURIUM BESYLATE 1,000 MG in D5W 5% 150 ML IV SCH (07:51)
[2022-12-19] MEDS: Ensure HIGH Protein Chocolate 8oz Bottle PO SCH ×2 (08:00→18:00)
[2022-12-19] MEDS: MIDAZOLAM DRIP 50 mg/50mL 50 ML IV SCH ×3 (08:52→23:09)
[2022-12-19 09:04] LABS: Band Neutrophils % (manual) 9; Lymphocytes % (manual) 2 (10.0-50.0); Monocytes % (manual) 3 (0-12)
[2022-12-19 09:24] LABS: Hemoglobin 7.7 g/dL (12.2-16.2)
[2022-12-19 09:27] LABS: Hematocrit 24.2 % (36.0-46.0); Mean Corpuscular Hemoglobin 28.2 pg (28.0-32.0); Mean Corpuscular Volume 88.2 fL (80.0-100.0); Red Blood Cells 2.74 10^6/uL (4.0-5.20); White Blood Cell 16.3 10^3/uL (4.4-10.8)
[2022-12-19 09:28] LABS: Red Cell Distribution Width 23.6 % (11.8-14.3)
[2022-12-19 09:29] LABS: Basophils % (manual) 0 (0.0-2.0); Blast Cells 0; Eosinophils % (manual) 0 (0-7); Metamyelocytes % 0; Myelocytes % 0; Promyelocytes % 0; Reactive Lymphocytes 0
[2022-12-19 09:39] LABS: Band Neutrophils % (manual) 9; Lymphocytes % (manual) 2 (10.0-50.0); Monocytes % (manual) 3 (0-12)
[2022-12-19] MEDS: SODIUM CHLOR 0.9% PF (SALINE LOCK) 10ML VIAL/SYR IV SCH ×2 (10:00→21:48)
[2022-12-19] MEDS ORDERED: SODIUM ZIRCONIUM CYCL 10 GM PAK PO ONE (14:15)
[2022-12-19] MEDS ORDERED: LIDOCAINE 2% JELLY 11ml (GLYDO) ONE (15:36)
[2022-12-19] MEDS ORDERED: GLYCOPYRROLATE 0.2 MG/ML 1ML VIAL ONE (15:36)
[2022-12-19] MEDS ORDERED: LIDOCAINE 2%HCL (LOCAL ANESTH.) INJ 20ML MDV ONE (15:36)
[2022-12-19] MEDS ORDERED: EPINEPHrine HCL 1 MG/1 ML AMP ONE (15:36)
[2022-12-19] MEDS ORDERED: fentaNYL CITRATE 100 MCG/2 ML VL ONE (15:37)
[2022-12-19] MEDS ORDERED: MIDAZOLAM HCL 2MG/2ML 2ml VIAL (1mg/ml) ONE (15:37)
[2022-12-19] MEDS: NOREPINEPHRINE 8 MG/250ML KIT 250 ML IV SCH (16:27)
[2022-12-19] MEDS: TPN PER PHARMACY IV NR ×6 (19:57)
[2022-12-19] MEDS ORDERED: TPN PER PHARMACY IV NR ×12 (20:00)
[2022-12-19] MEDS: SODIUM ZIRCONIUM CYCL 10 GM PAK PO SCH (21:41)
[2022-12-20] VITALS (108 sets, daily range): BP systolic 98–174; BP diastolic 37–65
[2022-12-20] MEDS: ACCU-CHEK COMFORT CURVE STRIP VI SCH ×5 (00:25→23:54)
[2022-12-20] MEDS: methylPREDNISolone SOD SUCC 40 MG/ML VL IV SCH ×5 (00:25→23:53)
[2022-12-20] MEDS: InsuLIN REG 1unit/0.01ml Soln (100units/ml) SC SCH ×4 (00:39→18:02)
[2022-12-20] MEDS: FUROSEMIDE INJECTION 100 MG in SODIUM CHL 0.9% 100 ML IV SCH ×5 (02:36→23:46)
[2022-12-20] MEDS: PHENYLEPHRINE IV 250 ML IV SCH ×3 (04:35→21:06)
[2022-12-20] MEDS: PROPOFOL 100 ML IV SCH ×5 (04:36→20:43)
[2022-12-20 04:56] LABS: Hemoglobin 7.2 g/dL (12.2-16.2); Mean Corpuscular Volume 87.6 fL (80.0-100.0)
[2022-12-20 04:58] LABS: Hematocrit 22.3 % (36.0-46.0); Mean Corpuscular Hemoglobin 28.3 pg (28.0-32.0); Mean Corpuscular Hgb Conc. 32.3 g/dL (32.0-36.0); Red Blood Cells 2.54 10^6/uL (4.0-5.20); White Blood Cell 14.4 10^3/uL (4.4-10.8)
[2022-12-20 05:06] LABS: Red Cell Distribution Width 23.9 % (11.8-14.3)
[2022-12-20 05:07] LABS: Basophils % (manual) 0 (0.0-2.0); Blast Cells 0; Eosinophils % (manual) 0 (0-7); Metamyelocytes % 0; Myelocytes % 0; Promyelocytes % 0; Reactive Lymphocytes 0
[2022-12-20 05:10] LABS: Albumin 1.1 g/dL (3.4-5.0); Calcium 7.5 mg/dL (8.5-10.1); Magnesium 1.8 mg/dL (1.6-2.6); Potassium 4.6 mmol/L (3.5-5.1)
[2022-12-20] MEDS: SODIUM ZIRCONIUM CYCL 10 GM PAK PO SCH ×3 (05:10→21:08)
[2022-12-20 05:14] LABS: BUN/Creatinine Ratio 60.3 (10.0-20.0); Bilirubin, Total 1.6 mg/dL (0.2-1.0); Phosphorus 3.3 mg/dL (2.5-4.90)
[2022-12-20] MEDS: INSULIN LANTUS (GLARGINE) 1 /0.01ml (100units/ml) SC SCH (07:03)
[2022-12-20] MEDS: fentaNYL Drip 2500mCg/250mlNS 250 ML IV SCH (07:04)
[2022-12-20 07:23] LABS: Band Neutrophils % (manual) 18; Lymphocytes % (manual) 1 (10.0-50.0); Monocytes % (manual) 3 (0-12)
[2022-12-20] MEDS: IPRATROPIUM BROM 0.5 MG/2.5ML INH SOL NEB SCH ×5 (07:34→22:05)
[2022-12-20] MEDS: ACETYLCYSTEINE 20%(200MG/ML) SOL 4ML NEB SCH ×3 (07:35→22:06)
[2022-12-20] MEDS: ALBUTEROL SULF 2.5 MG/0.5ML(0.5%) NEB SOLN NEB SCH ×5 (07:35→22:05)
[2022-12-20] MEDS: Ensure HIGH Protein Chocolate 8oz Bottle PO SCH ×2 (08:00→18:00)
[2022-12-20] MEDS: SODIUM CHLOR 0.9% PF (SALINE LOCK) 10ML VIAL/SYR IV SCH ×2 (10:00→21:26)
[2022-12-20] MEDS: MIDAZOLAM DRIP 50 mg/50mL 50 ML IV SCH ×4 (10:15→20:44)
[2022-12-20] MEDS: NOREPINEPHRINE 8 MG/250ML KIT 250 ML IV SCH (11:32)
[2022-12-20] MEDS: ATRACURIUM BESYLATE 1,000 MG in D5W 5% 150 ML IV SCH (12:30)
[2022-12-20] MEDS: ALBUMIN 25% 100 ML IV SCH ×2 (17:20→23:53)
[2022-12-20] MEDS ORDERED: TPN PER PHARMACY IV NR ×7 (20:00)
[2022-12-21] VITALS (84 sets, daily range): BP systolic 110–181; BP diastolic 37–62
[2022-12-21] MEDS: InsuLIN REG 1unit/0.01ml Soln (100units/ml) SC SCH ×3 (00:01→12:27)
[2022-12-21] MEDS: MIDAZOLAM DRIP 50 mg/50mL 50 ML IV SCH ×3 (00:02→07:10)
[2022-12-21] MEDS: PROPOFOL 100 ML IV SCH ×3 (01:28→09:47)
[2022-12-21] MEDS: FUROSEMIDE INJECTION 100 MG in SODIUM CHL 0.9% 100 ML IV SCH ×5 (03:15→15:05)
[2022-12-21] MEDS: fentaNYL Drip 2500mCg/250mlNS 250 ML IV SCH (05:05)
[2022-12-21] MEDS: PHENYLEPHRINE IV 250 ML IV SCH ×2 (05:23→13:55)
[2022-12-21 05:24] LABS: Albumin 2.1 g/dL (3.4-5.0); Calcium 8.1 mg/dL (8.5-10.1); Magnesium 1.9 mg/dL (1.6-2.6); Potassium 3.6 mmol/L (3.5-5.1)
[2022-12-21 05:30] LABS: Bilirubin, Total 1.8 mg/dL (0.2-1.0); Phosphorus 3.8 mg/dL (2.5-4.90); Total Protein 4.5 g/dL (6.4-8.2)
[2022-12-21 05:34] LABS: BUN/Creatinine Ratio 58.9 (10.0-20.0)
[2022-12-21] MEDS: ALBUTEROL SULF 2.5 MG/0.5ML(0.5%) NEB SOLN NEB SCH ×2 (05:46→09:27)
[2022-12-21] MEDS: IPRATROPIUM BROM 0.5 MG/2.5ML INH SOL NEB SCH ×2 (05:46→09:27)
[2022-12-21] MEDS: ACETYLCYSTEINE 20%(200MG/ML) SOL 4ML NEB SCH (05:46)
[2022-12-21] MEDS: SODIUM ZIRCONIUM CYCL 10 GM PAK PO SCH (06:08)
[2022-12-21] MEDS: ACCU-CHEK COMFORT CURVE STRIP VI SCH ×2 (06:08→12:25)
[2022-12-21] MEDS: methylPREDNISolone SOD SUCC 40 MG/ML VL IV SCH ×2 (06:08→12:25)
[2022-12-21] MEDS: ALBUMIN 25% 100 ML IV SCH (06:37)
[2022-12-21] MEDS: INSULIN LANTUS (GLARGINE) 1 /0.01ml (100units/ml) SC SCH (06:55)
[2022-12-21 06:57] LABS: Basophils # (auto) 0.1 10 ^3/uL (0-0.2); Basophils % (auto) 0.7 % (0.0-2.0); Eosinophils # (auto) 0 10 ^3/uL (0-0.8); Eosinophils % (auto) 0.1 % (0.0-7.0); Lymphocytes # (auto) 0.2 10 ^3/uL (0.4-5.4); Monocytes # (auto) 0.2 10 ^3/uL (0-1.3); Monocytes % (auto) 1.8 % (0.0-12.0)
[2022-12-21 06:58] LABS: Hematocrit 16.9 % (36.0-46.0); Lymphocytes % (auto) 2.1 % (10.0-50.0); Mean Corpuscular Hemoglobin 28.9 pg (28.0-32.0); Mean Corpuscular Hgb Conc. 33.5 g/dL (32.0-36.0); Mean Corpuscular Volume 86.2 fL (80.0-100.0); Neutrophils # (auto) 8.3 10 ^3/uL (1.6-8.6); Neutrophils % (auto) 95.3 % (37.0-80.0); Nucleated Red Blood Cells % 0.4 %; Red Blood Cells 1.97 10^6/uL (4.0-5.20); White Blood Cell 8.8 10^3/uL (4.4-10.8)
[2022-12-21 07:39] LABS: Red Cell Distribution Width 23.9 % (11.8-14.3)
[2022-12-21 07:57] LABS: Hemoglobin 5.7 g/dL (12.2-16.2)
[2022-12-21] MEDS: Ensure HIGH Protein Chocolate 8oz Bottle PO SCH (08:00)
[2022-12-21] MEDS: SODIUM CHLOR 0.9% PF (SALINE LOCK) 10ML VIAL/SYR IV SCH (10:05)
[2022-12-21] MEDS: NOREPINEPHRINE 8 MG/250ML KIT 250 ML IV SCH (11:30)
[2022-12-21] MEDS: ATRACURIUM BESYLATE 1,000 MG in D5W 5% 150 ML IV SCH (12:30)
[2022-12-21] MEDS ORDERED: MORPHINE SULFATE INJ 2 MG/ml SYRG IV PRN (17:00)
[2022-12-21] MEDS ORDERED: LORazepam 2MG/ML-1ML VIAL IV PRN (17:00)
[2022-12-21] MEDS ORDERED: TPN PER PHARMACY IV NR ×8 (20:00)
== END 2022-12-21 21:00 | DRG 870 ==
LOC: ER 18:05 → TELE 23:12 → TELE-WESTW 11-27 17:00 → TELE-EAST 11-29 16:32 → DOU IN ICU 12-02 14:20 → ICU CENTRL 12-18 17:35
PROVIDERS: ADMIT Nurse Practitioner Family; ATTEND Internal Medicine Pulmonary Disease
PROC: 5A09357 Assistance with Respiratory Ventilation, Less than 24 Consecutive Hours, Continuous Positive Airway Pressure (ICD-10-PCS; 2022-12-01)
PROC: 5A0945A Assistance with Respiratory Ventilation, 24-96 Consecutive Hours, High Flow/Velocity Cannula (ICD-10-PCS; 2022-12-02)
PROC: 5A09357 Assistance with Respiratory Ventilation, Less than 24 Consecutive Hours, Continuous Positive Airway Pressure (ICD-10-PCS; 2022-12-06)
PROC: 5A0935A Assistance with Respiratory Ventilation, Less than 24 Consecutive Hours, High Flow/Velocity Cannula (ICD-10-PCS; 2022-12-06)
PROC: 5A09357 Assistance with Respiratory Ventilation, Less than 24 Consecutive Hours, Continuous Positive Airway Pressure (ICD-10-PCS; 2022-12-07)
PROC: 5A0935A Assistance with Respiratory Ventilation, Less than 24 Consecutive Hours, High Flow/Velocity Cannula (ICD-10-PCS; 2022-12-07)
PROC: 5A09357 Assistance with Respiratory Ventilation, Less than 24 Consecutive Hours, Continuous Positive Airway Pressure (ICD-10-PCS; 2022-12-08)
PROC: 5A0935A Assistance with Respiratory Ventilation, Less than 24 Consecutive Hours, High Flow/Velocity Cannula (ICD-10-PCS; 2022-12-08)
PROC: 5A09357 Assistance with Respiratory Ventilation, Less than 24 Consecutive Hours, Continuous Positive Airway Pressure (ICD-10-PCS; 2022-12-09)
PROC: 5A0935A Assistance with Respiratory Ventilation, Less than 24 Consecutive Hours, High Flow/Velocity Cannula (ICD-10-PCS; 2022-12-09)
PROC: 5A09557 Assistance with Respiratory Ventilation, Greater than 96 Consecutive Hours, Continuous Positive Airway Pressure (ICD-10-PCS; 2022-12-10)
PROC: 02H633Z Insertion of Infusion Device into Right Atrium, Percutaneous Approach (ICD-10-PCS; 2022-12-11)
PROC: B548ZZA Ultrasonography of Superior Vena Cava, Guidance (ICD-10-PCS; 2022-12-11)
PROC: 5A1955Z Respiratory Ventilation, Greater than 96 Consecutive Hours (ICD-10-PCS; principal; 2022-12-17)
PROC: 0BH17EZ Insertion of Endotracheal Airway into Trachea, Via Natural or Artificial Opening (ICD-10-PCS; 2022-12-17)
PROC: 30233R1 Transfusion of Nonautologous Platelets into Peripheral Vein, Percutaneous Approach (ICD-10-PCS; 2022-12-19)
PROC: 30233N1 Transfusion of Nonautologous Red Blood Cells into Peripheral Vein, Percutaneous Approach (ICD-10-PCS; 2022-12-21)
DX: A41.9 Sepsis, unspecified organism (principal); G92.8 Other toxic encephalopathy; J18.9 Pneumonia, unspecified organism; R65.21 Severe sepsis with septic shock; J80 Acute respiratory distress syndrome; E87.1 Hypo-osmolality and hyponatremia; J90 Pleural effusion, not elsewhere classified; J98.11 Atelectasis; E87.4 Mixed disorder of acid-base balance; N39.0 Urinary tract infection, site not specified; N17.9 Acute kidney failure, unspecified; E87.0 Hyperosmolality and hypernatremia; D62 Acute posthemorrhagic anemia; Z20.822 Contact with and (suspected) exposure to COVID-19; Z68.36 Body mass index [BMI] 36.0-36.9, adult; E66.01 Morbid (severe) obesity due to excess calories; E88.09 Other disorders of plasma-protein metabolism, not elsewhere classified; F41.9 Anxiety disorder, unspecified; K74.60 Unspecified cirrhosis of liver; E87.6 Hypokalemia; D69.6 Thrombocytopenia, unspecified; E87.70 Fluid overload, unspecified
CPT/HCPCS: 36415; 36569; 36600; 71045; 71275; 74176; 76604; 80048; 80053; 80069; 80202; 81001; 82140; 82570; 82805; 82962; 83605; 83735; 83880; 83930; 84100; 84132; 84133; 84156; 84300; 84478; 84484; 85007; 85025; 85027; 85379; 85610; 85730; 86850; 86900; 86901; 86920; 87040; 87070; 87077; 87081; 87086; 87088; 87186; 87205; 87426; 93005; 93970; 94002; 94003; 94640; 94660; 94667; 94668; 94762; 95819; 96365; 96367; 96375; G0378; J0171; J0330; J1100; J1450; J1815; J2250; J2405; J2543; J2704; J3480; J3490; J7060; J7131; P9047